=== PATIENT | female | born 1955 | race African-American/Black ===

== ENCOUNTER 2018-12-10 13:08 | Emergency (ER) | payer OTHER, MEDICARE, MEDICAID ==
[~2018-12-10] VITALS: Ht 160 cm; Wt 70.0 kg
[2018-12-10] MEDS ORDERED: METHYLPREDNISOLONE SOD SUCC 125 MG/2 ML VIAL IV STA (13:38)
[2018-12-10] MEDS ORDERED: IPRATROPIUM BROMIDE (0.02%) 0.5MG/2.5ML NEB HHN STA (13:38)
[2018-12-10] MEDS ORDERED: ALBUTEROL (0.083%) 2.5MG/3ML NEB HHN STA (13:38)
[2018-12-10] MEDS ORDERED: SODIUM CHLORIDE 0.9% 1,000 ML IV ONE (16:22)
[2018-12-10 16:36] LABS: BASOPHILS % 0.2 % (0.0-2.0); EOSINOPHILS % 3.3 % (0.0-5.0); HEMATOCRIT. 40.2 % (36.0-48.0); HEMOGLOBIN. 13.1 g/dL (12.0-16.0); LYMPHOCYTES % 21.6 % (20.0-50.0); MEAN CORPUSCULAR VOLUME 92.4 fL (81.0-99.0); MEAN PLATELET VOLUME 7.6 fl (7.4-10.4); MONOCYTES % 8.1 % (2.0-8.0); NEUTROPHILS % 66.8 % (40.0-76.0); PLATELET 292 x1000/uL (130-400); RED BLOOD CELL COUNT 4.35 mill/uL (4.2-5.4); RED CELL DISTRIBUTION WIDTH 14.6 % (11.6-14.6)
[2018-12-10 16:37] LABS: CHLORIDE 107 mEq/L (98-107)
[2018-12-10] MEDS ORDERED: POTASSIUM CHLORIDE 20MEQ TABLET SR PO ONE (17:00)
[2018-12-10 18:08] VITALS: BP 125/83
== END 2018-12-10 18:44 | disposition home or self-care (01) ==
LOC: ER 13:08 → EDBEDREQ 16:30 → ER 18:44 → CANBEDREQ 20:34
DX: J45.901 Unspecified asthma with (acute) exacerbation (principal); R03.0 Elevated blood-pressure reading, without diagnosis of hypertension
CPT/HCPCS: 36415; 71045; 80053; 84484; 85025; 93005; 94644; 96374; 99285; J2930; J7030; J7611

== ENCOUNTER 2020-03-03 11:27 | Inpatient (IN) | payer MEDICAID, MEDICARE, OTHER ==
[~2020-03-03] VITALS: Ht 157.5 cm; Wt 71.7 kg
[~2020-03-03 11:27] MED LIST: VANCOMYCIN 1 G PREMIX 200 ML IV SCH
[2020-03-03] MEDS ORDERED: SODIUM CHLORIDE 0.9% 1000ML BAG (SEPSIS BOLUS) IV ONE (12:15)
[2020-03-03] MEDS ORDERED: CEFAZOLIN 1000MG PREMIX 50 ML IV ONE (12:15)
[2020-03-03] MEDS ORDERED: TETANUS, DIPHTHERIA, PERTUSSIS VAC/PF 0.5ML (>7YR OLD) IM ONE (12:15)
[2020-03-03] MEDS ORDERED: PERMETHRIN 5% CREAM 60GM TOP ONE (12:45)
[2020-03-03 13:45] LABS: BASOPHILS % 0.4 % (0.0-2.0); EOSINOPHILS % 0.4 % (0.0-5.0); HEMATOCRIT. 31.4 % (36.0-48.0); HEMOGLOBIN. 10.2 g/dL (12.0-16.0); LYMPHOCYTES % 9.6 % (20.0-50.0); MEAN CORPUSCULAR HEMOGLOBIN 29.3 pg (28.0-32.0); MEAN CORPUSCULAR VOLUME 90.7 fL (81.0-99.0); MEAN PLATELET VOLUME 7.4 fl (7.4-10.4); MONOCYTES % 6.3 % (2.0-8.0); NEUTROPHILS % 83.3 % (40.0-76.0); PLATELET 305 x1000/uL (130-400); RED BLOOD CELL COUNT 3.46 mill/uL (4.2-5.4); RED CELL DISTRIBUTION WIDTH 15.7 % (11.6-14.6)
[2020-03-03 13:54] LABS: CHLORIDE 111 mEq/L (98-107)
[2020-03-03 14:00] LABS: ETHANOL BLOOD < 10 mg/dL
[2020-03-03 14:03] LABS: CREATINE KINASE 83 IU/L (26-192)
[2020-03-03 14:13] LABS: CLARITY URINE CLOUDY (CLEAR); COLOR URINE DARK YELLOW (YELLOW); KETONES URINE TRACE (NEGATIVE); LEUKOCYTE ESTERASE URINE 2+ (NEGATIVE); NITRITE URINE POSITIVE (NEGATIVE); OCCULT BLOOD URINE TRACE (NEGATIVE); PH URINE 5.5 (4.5-8.0); PROTEIN URINE 1+ (NEGATIVE); SPECIFIC GRAVITY URINE 1.028 (1.005-1.030)
[2020-03-03] MEDS ORDERED: ACETAMINOPHEN 325MG TABLET PO PRN ×2 (14:15)
[2020-03-03] MEDS ORDERED: NA PHOS,M-B/NA PHOS,DI-BA ENEMA 118ML PR PRN (14:15)
[2020-03-03] MEDS ORDERED: CLONIDINE 0.1MG TABLET PO PRN (14:15)
[2020-03-03] MEDS ORDERED: NITROGLYCERIN 0.4MG TABLET SL SL PRN (14:15)
[2020-03-03] MEDS ORDERED: KETOROLAC 15MG/ML VIAL IV PRN (14:15)
[2020-03-03] MEDS ORDERED: MAGNESIUM/ALUMINUM HYDROXIDE/SIMETHICONE 30ML UDC PO PRN (14:15)
[2020-03-03] MEDS ORDERED: IPRATROPIUM/ALBUTEROL 0.5-3(2.5)MG/3ML NEB NEB PRN (14:15)
[2020-03-03] MEDS ORDERED: GUAIFENESIN 200MG/10ML SUGAR FREE UDC PO PRN (14:15)
[2020-03-03] MEDS ORDERED: TRAMADOL 50MG TABLET PO PRN (14:15)
[2020-03-03] MEDS ORDERED: ONDANSETRON HCL 4MG/2ML INJ IV PRN (14:15)
[2020-03-03] MEDS ORDERED: DOCUSATE SODIUM 100MG CAPSULE PO PRN (14:15)
[2020-03-03 14:38] LABS: *BENZODIAZEPINES SCREEN URINE NEGATIVE (NEGATIVE); *COCAINE SCREEN URINE NEGATIVE (NEGATIVE); CANNABINOID URINE SCREEN NEGATIVE (NEGATIVE); METHADONE URINE SCREEN NEGATIVE (NEGATIVE); OPIATES URINE SCREEN NEGATIVE (NEGATIVE); PHENCYCLIDINE URINE SCREEN NEGATIVE (NEGATIVE)
[2020-03-03 14:39] LABS: *AMPHETAMINES SCREEN URINE NEGATIVE (NEGATIVE); *BARBITURATES SCREEN URINE NEGATIVE (NEGATIVE)
[2020-03-03] MEDS ORDERED: PIPERACILLIN/TAZOBACTAM 3.375 G in DEXT 5% WATER 100 ML IV SCH (16:00)
[2020-03-03 16:42] LABS: D-DIMER 10.56 mg/L FEU (<0.50); INR 1.1; PROTHROMBIN TIME 11.4 sec (9.6-11.0)
[2020-03-03 17:00] VITALS: BP 116/77
[2020-03-03] MEDS ORDERED: VANCOMYCIN 1500MG in DEXTROSE 5% WATER 250ML IV NR (17:00)
[2020-03-03] MEDS: SODIUM CHLORIDE 0.9% 1,000 ML IV SCH (18:20)
[2020-03-03] MEDS: PIPERACILLIN/TAZOBACTAM 3.375 G in DEXT 5% WATER 100 ML IV SCH (18:20)
[2020-03-03] MEDS: DILTIAZEM HCL 60MG TABLET PO SCH (18:21)
[2020-03-03] MEDS: ENOXAPARIN 40MG/0.4ML SYR SUBCUT SCH (18:21)
[2020-03-03 20:00] VITALS: BP 119/73
[2020-03-03] MEDS: FAMOTIDINE 20MG TABLET PO SCH (20:55)
[2020-03-03] MEDS: ASCORBIC ACID 500 MG TABLET PO SCH (20:56)
[2020-03-03] MEDS ORDERED: ZOLPIDEM TARTRATE 5MG TABLET PO PRN (21:00)
[2020-03-03 23:29] LABS: CREATINE KINASE 373 IU/L (26-192)
[2020-03-03 23:31] LABS: CREATINE KINASE MB FRACTION 1.7 ng/mL (0.5-3.6)
[2020-03-04] VITALS: BP 118/73
[2020-03-04] MEDS: SODIUM CHLORIDE 0.9% 1,000 ML IV SCH ×2 (00:51→10:01)
[2020-03-04] MEDS: DILTIAZEM HCL 60MG TABLET PO SCH ×4 (00:51→18:00)
[2020-03-04] MEDS: PIPERACILLIN/TAZOBACTAM 3.375 G in DEXT 5% WATER 100 ML IV SCH ×3 (00:54→17:11)
[2020-03-04 04:00] VITALS: BP 111/79
[2020-03-04 08:00] VITALS: BP 103/67
[2020-03-04] MEDS: ASCORBIC ACID 500 MG TABLET PO SCH ×2 (09:55→22:06)
[2020-03-04] MEDS: FAMOTIDINE 20MG TABLET PO SCH ×2 (09:55→22:06)
[2020-03-04] MEDS: ZINC SULFATE 220 MG ( 50 ) CAPSULE PO SCH (09:55)
[2020-03-04] MEDS: ASPIRIN 325MG EC TABLET PO SCH (09:55)
[2020-03-04] MEDS: ENOXAPARIN 40MG/0.4ML SYR SUBCUT SCH (09:55)
[2020-03-04 10:58] LABS: BASOPHILS % 0.3 % (0.0-2.0); EOSINOPHILS % 4.1 % (0.0-5.0); HEMATOCRIT. 25.9 % (36.0-48.0); HEMOGLOBIN. 8.3 g/dL (12.0-16.0); LYMPHOCYTES % 18.7 % (20.0-50.0); MEAN CORPUSCULAR VOLUME 90.5 fL (81.0-99.0); MEAN PLATELET VOLUME 7.3 fl (7.4-10.4); MONOCYTES % 6.8 % (2.0-8.0); NEUTROPHILS % 70.1 % (40.0-76.0); PLATELET 263 x1000/uL (130-400); RED BLOOD CELL COUNT 2.86 mill/uL (4.2-5.4); RED CELL DISTRIBUTION WIDTH 15.3 % (11.6-14.6)
[2020-03-04 11:05] LABS: CHLORIDE 111 mEq/L (98-107)
[2020-03-04 11:12] LABS: LDL CHOLESTEROL 83 mg/dL (5-100); PHOSPHORUS 2.2 mg/dL (2.5-4.9)
[2020-03-04 11:13] LABS: HDL CHOLESTEROL 34 mg/dL (40-59)
[2020-03-04 11:14] LABS: CREATINE KINASE 629 IU/L (26-192)
[2020-03-04] MEDS: VANCOMYCIN 1 G PREMIX 200 ML IV SCH (11:35)
[2020-03-04 12:00] VITALS: BP 102/63
[2020-03-04] MEDS ORDERED: POTASSIUM PHOS,M-BASIC-D-BASIC 20 MMOL in DEXT 5% WATER 243.3333 ML IV SCH (15:00)
[2020-03-04 16:00] VITALS: BP 99/60
[2020-03-04 20:00] VITALS: BP 107/64
[2020-03-05] VITALS: BP 111/84
[2020-03-05] MEDS: PIPERACILLIN/TAZOBACTAM 3.375 G in DEXT 5% WATER 100 ML IV SCH ×3 (00:57→16:46)
[2020-03-05 04:00] VITALS: BP 107/79
[2020-03-05] MEDS: VANCOMYCIN 1 G PREMIX 200 ML IV SCH ×2 (05:13→22:50)
[2020-03-05] MEDS: DILTIAZEM HCL 60MG TABLET PO SCH ×4 (05:56→17:52)
[2020-03-05 06:19] LABS: CHLORIDE 110 mEq/L (98-107)
[2020-03-05 06:34] LABS: PHOSPHORUS 3.6 mg/dL (2.5-4.9)
[2020-03-05 06:42] LABS: BASOPHILS % 0.3 % (0.0-2.0); EOSINOPHILS % 5.5 % (0.0-5.0); HEMATOCRIT. 23.8 % (36.0-48.0); LYMPHOCYTES % 26.5 % (20.0-50.0); MEAN CORPUSCULAR HEMOGLOBIN 30.2 pg (28.0-32.0); MEAN CORPUSCULAR VOLUME 90.3 fL (81.0-99.0); MEAN PLATELET VOLUME 7.3 fl (7.4-10.4); MONOCYTES % 10.1 % (2.0-8.0); NEUTROPHILS % 57.6 % (40.0-76.0); PLATELET 259 x1000/uL (130-400); RED BLOOD CELL COUNT 2.64 mill/uL (4.2-5.4); RED CELL DISTRIBUTION WIDTH 15.3 % (11.6-14.6)
[2020-03-05 08:00] VITALS: BP 112/73
[2020-03-05] MEDS: THIAMINE HCL 100MG TABLET PO SCH (09:05)
[2020-03-05] MEDS: ASPIRIN 325MG EC TABLET PO SCH (09:06)
[2020-03-05] MEDS: ENOXAPARIN 40MG/0.4ML SYR SUBCUT SCH (09:06)
[2020-03-05] MEDS: ZINC SULFATE 220 MG ( 50 ) CAPSULE PO SCH (09:06)
[2020-03-05] MEDS: FAMOTIDINE 20MG TABLET PO SCH ×2 (09:06→21:01)
[2020-03-05] MEDS: MULTIVITAMINS,THER W-MINERALS TABLET PO SCH (09:06)
[2020-03-05] MEDS: ASCORBIC ACID 500 MG TABLET PO SCH ×2 (09:06→21:00)
[2020-03-05] MEDS: CLOPIDOGREL 75MG TABLET PO SCH (10:45)
[2020-03-05 12:00] VITALS: BP 135/93
[2020-03-05 16:00] VITALS: BP 107/71
[2020-03-05 20:00] VITALS: BP 120/73
[2020-03-06] VITALS: BP 112/59
[2020-03-06] MEDS: DILTIAZEM HCL 60MG TABLET PO SCH ×4 (00:22→17:13)
[2020-03-06] MEDS: PIPERACILLIN/TAZOBACTAM 3.375 G in DEXT 5% WATER 100 ML IV SCH ×3 (01:32→17:12)
[2020-03-06 04:00] VITALS: BP 107/60
[2020-03-06] MEDS: SODIUM CHLORIDE 0.9% 1,000 ML IV SCH ×4 (06:02→17:17)
[2020-03-06 08:00] VITALS: BP 143/91
[2020-03-06] MEDS: FAMOTIDINE 20MG TABLET PO SCH (10:38)
[2020-03-06] MEDS: THIAMINE HCL 100MG TABLET PO SCH (10:39)
[2020-03-06] MEDS: CLOPIDOGREL 75MG TABLET PO SCH (10:39)
[2020-03-06] MEDS: MULTIVITAMINS,THER W-MINERALS TABLET PO SCH (10:39)
[2020-03-06] MEDS: ZINC SULFATE 220 MG ( 50 ) CAPSULE PO SCH (10:39)
[2020-03-06] MEDS: ASCORBIC ACID 500 MG TABLET PO SCH (10:39)
[2020-03-06] MEDS: ENOXAPARIN 40MG/0.4ML SYR SUBCUT SCH (10:48)
[2020-03-06] MEDS ORDERED: VANCOMYCIN 1 G PREMIX 200 ML IV SCH (11:00)
[2020-03-06 11:55] VITALS: BP 101/71
[2020-03-06 14:57] VITALS: BP 101/71
[2020-03-06 16:00] VITALS: BP 115/65
[2020-03-06] MEDS ORDERED: ATORVASTATIN CALCIUM 10MG TABLET PO SCH (21:00)
== END 2020-03-06 18:11 | DRG 871 ==
LOC: ER 11:27 → EDBEDREQTM 13:47 → EDBEDREQ 13:47 → 5WST 13:52 → EDBEDREQTM 13:56 → EDBEDREQ 13:56 → SUPCPDRO 14:07 → ENRESERV 14:21
PROVIDERS: ADMIT Internal Medicine; ATTEND Internal Medicine
DX: A41.9 Sepsis, unspecified organism (principal); G92 Toxic encephalopathy; I63.9 Cerebral infarction, unspecified; E44.1 Mild protein-calorie malnutrition; L03.90 Cellulitis, unspecified; N39.0 Urinary tract infection, site not specified; B95.8 Unspecified staphylococcus as the cause of diseases classified elsewhere; D63.8 Anemia in other chronic diseases classified elsewhere; E86.1 Hypovolemia; F03.90 Unspecified dementia, unspecified severity, without behavioral disturbance, psychotic disturbance, mood disturbance, and anxiety; I10 Essential (primary) hypertension; L89.309 Pressure ulcer of unspecified buttock, unspecified stage; R62.7 Adult failure to thrive; R65.20 Severe sepsis without septic shock; Z86.73 Personal history of transient ischemic attack (TIA), and cerebral infarction without residual deficits; Z68.28 Body mass index [BMI] 28.0-28.9, adult; Z79.1 Long term (current) use of non-steroidal anti-inflammatories (NSAID); Z79.899 Other long term (current) drug therapy; Z59.0 Homelessness; Z03.818 Encounter for observation for suspected exposure to other biological agents ruled out
CPT/HCPCS: 36415; 70551; 71045; 80053; 80061; 80202; 80305; 80307; 80320; 80329; 81003; 82140; 82550; 82553; 83036; 83605; 83615; 83735; 83880; 84100; 84145; 84443; 84484; 85025; 85379; 85384; 87077; 87186; 90715; 93005; 93306; 93880; 93970; 97162; 97166; 97530; 99285; J0690; J1650; J2543; J3370; J3490; J7030; J7060; G0480; U0003-CS

== ENCOUNTER 2021-01-17 13:45 | Inpatient (IN) | payer MEDICARE, MEDICAID ==
[~2021-01-17] VITALS: Ht 157.5 cm; Wt 71.7 kg
[2021-01-17 12:35] VITALS: BP 110/72
[2021-01-17 15:21] VITALS: BP 110/72
[2021-01-17] MEDS ORDERED: LIP40 MT (15:41)
[2021-01-17] MEDS ORDERED: FERR325T6 MT (15:41)
[2021-01-17] MEDS ORDERED: FAMO-135 PO (15:41)
[2021-01-17] MEDS ORDERED: DILT60TA41 MT (15:41)
[2021-01-17 16:00] VITALS: BP 116/79
[2021-01-17] MEDS ORDERED: ACETAMINOPHEN 325MG TABLET PO PRN (16:00)
[2021-01-17] MEDS ORDERED: HYDROCODONE/ACETAMINOPHEN 5/325MG TABLET PO PRN (16:00)
[2021-01-17] MEDS: SODIUM CHLORIDE 0.45% 1,000 ML IV SCH (16:00)
[2021-01-17] MEDS ORDERED: CLONIDINE 0.1MG TABLET PO PRN (16:00)
[2021-01-17] MEDS ORDERED: CEFTRIAXONE 1 G PREMIX 50 ML IV SCH (16:00)
[2021-01-17] MEDS ORDERED: ONDANSETRON HCL 4MG/2ML INJ IV PRN (16:00)
[2021-01-17] MEDS ORDERED: THIA50TA12 MT (16:34)
[2021-01-17] MEDS ORDERED: ASCO500C15 PO (16:34)
[2021-01-17] MEDS ORDERED: NITR0.4T49 SL (16:34)
[2021-01-17] MEDS ORDERED: MULT-1146 MT (16:34)
[2021-01-17] MEDS ORDERED: CLOP-31 MT (16:34)
[2021-01-17] MEDS: CEFTRIAXONE 1,000 MG in DEXTROSE 5% WATER 50 ML IV SCH (17:23)
[2021-01-17] MEDS ORDERED: ENOXAPARIN 40MG/0.4ML SYR SUBCUT NR (18:00)
[2021-01-17 20:00] VITALS: BP 97/73
[2021-01-18] VITALS: BP 116/77
[2021-01-18 04:00] VITALS: BP 116/73
[2021-01-18] MEDS: SODIUM CHLORIDE 0.45% 1,000 ML IV SCH ×2 (05:20→18:40)
[2021-01-18 07:54] LABS: BASOPHILS % 0.3 % (0.0-2.0); EOSINOPHILS % 2.1 % (0.0-5.0); HEMATOCRIT. 37.5 % (36.0-48.0); LYMPHOCYTES % 39.6 % (20.0-50.0); MEAN CORPUSCULAR HEMOGLOBIN 32.1 pg (28.0-32.0); MEAN CORPUSCULAR VOLUME 92.6 fL (81.0-99.0); MEAN PLATELET VOLUME 7.3 fl (7.4-10.4); MONOCYTES % 9.9 % (2.0-8.0); NEUTROPHILS % 48.1 % (40.0-76.0); PLATELET 226 x1000/uL (130-400); RED BLOOD CELL COUNT 4.05 mill/uL (4.2-5.4); RED CELL DISTRIBUTION WIDTH 14.2 % (11.6-14.6)
[2021-01-18 08:00] VITALS: BP 106/78
[2021-01-18 08:18] LABS: CHLORIDE 109 mEq/L (98-107)
[2021-01-18 08:29] LABS: HDL CHOLESTEROL 61 mg/dL (40-59); LDL CHOLESTEROL 66 mg/dL (5-100)
[2021-01-18 12:00] VITALS: BP 124/70
[2021-01-18 16:00] VITALS: BP 133/90
[2021-01-18] MEDS: CEFTRIAXONE 1,000 MG in DEXTROSE 5% WATER 50 ML IV SCH (16:28)
[2021-01-18] MEDS: DILTIAZEM HCL 60MG TABLET PO SCH (16:29)
[2021-01-18] MEDS: ASCORBIC ACID 500 MG TABLET PO SCH (16:29)
[2021-01-18] MEDS: CLOPIDOGREL 75MG TABLET PO SCH (16:29)
[2021-01-18] MEDS: ENOXAPARIN 40MG/0.4ML SYR SUBCUT SCH (16:29)
[2021-01-18] MEDS: FAMOTIDINE 20MG TABLET PO SCH (16:29)
[2021-01-18 20:00] VITALS: BP 111/66
[2021-01-18] MEDS: ATORVASTATIN CALCIUM 40MG TABLET PO SCH (21:46)
[2021-01-19] VITALS: BP 110/72
[2021-01-19 04:00] VITALS: BP 112/75
[2021-01-19 08:00] VITALS: BP 116/84
[2021-01-19] MEDS: ASCORBIC ACID 500 MG TABLET PO SCH (09:57)
[2021-01-19] MEDS: FAMOTIDINE 20MG TABLET PO SCH (10:02)
[2021-01-19] MEDS: DILTIAZEM HCL 60MG TABLET PO SCH ×2 (10:02→18:21)
[2021-01-19] MEDS: ENOXAPARIN 40MG/0.4ML SYR SUBCUT SCH ×2 (10:03→18:16)
[2021-01-19] MEDS: CLOPIDOGREL 75MG TABLET PO SCH (10:03)
[2021-01-19 11:27] LABS: CHLORIDE 108 mEq/L (98-107)
[2021-01-19 11:35] LABS: BASOPHILS % 0.1 % (0.0-2.0); EOSINOPHILS % 0.3 % (0.0-5.0); HEMATOCRIT. 40.5 % (36.0-48.0); HEMOGLOBIN. 13.4 g/dL (12.0-16.0); LYMPHOCYTES % 28.5 % (20.0-50.0); MEAN CORPUSCULAR VOLUME 93.5 fL (81.0-99.0); MEAN PLATELET VOLUME 7.2 fl (7.4-10.4); MONOCYTES % 9.6 % (2.0-8.0); NEUTROPHILS % 61.5 % (40.0-76.0); PLATELET 252 x1000/uL (130-400); RED BLOOD CELL COUNT 4.33 mill/uL (4.2-5.4); RED CELL DISTRIBUTION WIDTH 14.2 % (11.6-14.6)
[2021-01-19 12:00] VITALS: BP 118/74
[2021-01-19 16:00] VITALS: BP 114/76
[2021-01-19] MEDS: CEFTRIAXONE 1,000 MG in DEXTROSE 5% WATER 50 ML IV SCH (18:00)
[2021-01-19 20:00] VITALS: BP 123/78
[2021-01-19] MEDS: SODIUM CHLORIDE 0.45% 1,000 ML IV SCH (21:20)
[2021-01-19] MEDS: ATORVASTATIN CALCIUM 40MG TABLET PO SCH (22:18)
[2021-01-20] VITALS: BP 105/72
[2021-01-20 04:00] VITALS: BP 120/75
[2021-01-20 08:00] VITALS: BP 115/77
[2021-01-20] MEDS: CLOPIDOGREL 75MG TABLET PO SCH (08:22)
[2021-01-20] MEDS: DILTIAZEM HCL 60MG TABLET PO SCH (08:22)
[2021-01-20] MEDS: FAMOTIDINE 20MG TABLET PO SCH (08:22)
[2021-01-20] MEDS: ASCORBIC ACID 500 MG TABLET PO SCH (08:22)
[2021-01-20] MEDS: SODIUM CHLORIDE 0.45% 1,000 ML IV SCH (10:40)
[2021-01-20 12:00] VITALS: BP 93/63
[2021-01-20 12:51] VITALS: BP 115/77
[2021-01-20 16:00] VITALS: BP 112/65
== END 2021-01-20 17:10 | DRG 872 ==
LOC: 6EST 13:45
PROVIDERS: ADMIT Hospitalist; ATTEND Hospitalist
DX: A41.9 Sepsis, unspecified organism (principal); E44.1 Mild protein-calorie malnutrition; N39.0 Urinary tract infection, site not specified; F03.90 Unspecified dementia, unspecified severity, without behavioral disturbance, psychotic disturbance, mood disturbance, and anxiety; I10 Essential (primary) hypertension; I25.10 Atherosclerotic heart disease of native coronary artery without angina pectoris; K21.9 Gastro-esophageal reflux disease without esophagitis; Z86.73 Personal history of transient ischemic attack (TIA), and cerebral infarction without residual deficits; Z87.440 Personal history of urinary (tract) infections; Z68.28 Body mass index [BMI] 28.0-28.9, adult; D64.9 Anemia, unspecified
CPT/HCPCS: 36415; 80053; 80061; 85025; C1893; J0696; J1650; J7060

== ENCOUNTER 2022-04-09 15:03 | Inpatient (IN) | payer MEDICARE, MEDICAID ==
[~2022-04-09] VITALS: Ht 152.4 cm; Wt 69.9 kg
[~2022-04-09 15:03] MED LIST changes: +ASCO500C15 PO; +CLOP-31 MT; +DILT60TA41 MT; +FAMO-135 PO; +FERR325T6 MT; +LIP40 MT; +MULT-1146 MT; +NITR0.4T49 SL; +THIA50TA12 MT; -VANCOMYCIN 1 G PREMIX 200 ML IV SCH
[2022-04-09] MEDS ORDERED: ALBUTEROL (0.083%) 2.5MG/3ML NEB HHN ONE (15:45)
[2022-04-09] MEDS ORDERED: SODIUM CHLORIDE 0.9% 500 ML IV ONE (15:45)
[2022-04-09] MEDS ORDERED: IPRATROPIUM BROMIDE (0.02%) 0.5MG/2.5ML NEB HHN ONE (15:45)
[2022-04-09] MEDS ORDERED: PIPERACILLIN/TAZ 3.375G PREMIX 50 ML IV ONE (15:45)
[2022-04-09 15:58] LABS: BASOPHILS % 0.3 % (0.0-2.0); HEMATOCRIT. 43.6 % (36.0-48.0); HEMOGLOBIN. 14.4 g/dL (12.0-16.0); MEAN CORPUSCULAR HEMOGLOBIN 31.4 pg (28.0-32.0); MEAN PLATELET VOLUME 8.3 fl (7.4-10.4); MONOCYTES % 7.9 % (2.0-8.0); NEUTROPHILS % 80.8 % (40.0-76.0); PLATELET 241 x1000/uL (130-400); RED BLOOD CELL COUNT 4.59 mill/uL (4.2-5.4); RED CELL DISTRIBUTION WIDTH 14.7 % (11.6-14.6)
[2022-04-09 16:11] LABS: CHLORIDE 114 mEq/L (98-107)
[2022-04-09 16:20] LABS: BG BASE EXCESS -1.1 mmol/L (-2.0-2.0); BG CARBOXYHEMOGLOBIN 0.4 % (0.5-1.5); BG DEOXYHEMOGLOBIN 7.8 % (0.0-5.0); BG FRACTION INSPIRED OXYGEN 44; BG HCO3 ACT 19.5 mmol/L (22.0-26.0); BG METHEMOGLOBIN 0.2 % (0.0-1.5); BG OXYGEN SATURATION 92.2 % (92.0-98.5); BG OXYHEMOGLOBIN 91.6 % (94.0-97.0); BG PCO2 23.7 mmHg (35.0-45.0); BG PH 7.533 (7.350-7.450); BG PO2 63.1 mmHg (75.0-100.0); BG SAMPLE SITE LEFT RADIAL; BG TOTAL HEMOGLOBIN 15.1 g/dL (12.0-18.0); BG VENT MODE NASAL CANNULA
[2022-04-09 17:18] LABS: CLARITY URINE CLOUDY (CLEAR); COLOR URINE DARK YELLOW (YELLOW); KETONES URINE 1+ (NEGATIVE); LEUKOCYTE ESTERASE URINE 2+ (NEGATIVE); NITRITE URINE POSITIVE (NEGATIVE); OCCULT BLOOD URINE 2+ (NEGATIVE); PROTEIN URINE 4+ (NEGATIVE); SPECIFIC GRAVITY URINE 1.039 (1.005-1.030)
[2022-04-09] MEDS ORDERED: MIDAZOLAM HCL 2 MG/2 ML VIAL IV ONE ×2 (17:30→17:45)
[2022-04-09] MEDS ORDERED: ALTEPLASE 100MG/VIAL IV ONE (18:15)
[2022-04-09] MEDS ORDERED: IOHEXOL-350 100 ML BOTTLE ONE (18:18)
[2022-04-09] MEDS ORDERED: ALTEPLASE IV NR (18:30)
[2022-04-09] MEDS ORDERED: SODIUM CHLORIDE 0.9% 1000ML BAG (SEPSIS BOLUS) IV ONE (19:00)
[2022-04-09] MEDS ORDERED: DOCUSATE SODIUM 100MG CAPSULE PO PRN (19:00)
[2022-04-09] MEDS ORDERED: IPRATROPIUM/ALBUTEROL 0.5-3(2.5)MG/3ML NEB NEB PRN (19:00)
[2022-04-09] MEDS ORDERED: ONDANSETRON HCL 4MG/2ML INJ IV PRN (19:00)
[2022-04-09] MEDS ORDERED: MAGNESIUM/ALUMINUM HYDROXIDE/SIMETHICONE 30ML UDC PO PRN (19:00)
[2022-04-09] MEDS ORDERED: GUAIFENESIN 200MG/10ML SUGAR FREE UDC PO PRN (19:00)
[2022-04-09] MEDS ORDERED: NOREPINEPHRINE 8 MG in DEXT 5% WATER 242 ML IV PRN (19:00)
[2022-04-09] MEDS ORDERED: CLONIDINE 0.1MG TABLET PO PRN (19:00)
[2022-04-09] MEDS ORDERED: ACETAMINOPHEN 325MG TABLET PO PRN ×2 (19:00)
[2022-04-09] MEDS ORDERED: SODIUM CHLORIDE 0.9% 1,950 ML IV SCH (19:15)
[2022-04-09] MEDS: MEROPENEM 1,000 MG in SODIUM CHLORIDE 0.9% 100 ML IV SCH (19:34)
[2022-04-09] MEDS ORDERED: VANCOMYCIN 1.25GM PMX (XELLIA) 250 ML IV SCH (20:00)
[2022-04-09] MEDS: ASCORBIC ACID 500 MG TABLET PO SCH (21:00)
[2022-04-09] MEDS: PANTOPRAZOLE SODIUM 40 MG/VIAL IV SCH (21:00)
[2022-04-09] MEDS ORDERED: ZOLPIDEM TARTRATE 5MG TABLET PO PRN (21:00)
[2022-04-10] VITALS (42 sets, daily range): BP systolic 67–231; BP diastolic 39–187
[2022-04-10 00:10] LABS: CREATINE KINASE MB FRACTION 1.8 ng/mL (0.5-3.6)
[2022-04-10] MEDS: MEROPENEM 1,000 MG in SODIUM CHLORIDE 0.9% 100 ML IV SCH ×3 (03:51→20:52)
[2022-04-10 05:52] LABS: BASOPHILS % 0.2 % (0.0-2.0); EOSINOPHILS % 0.6 % (0.0-5.0); HEMATOCRIT. 38.8 % (36.0-48.0); HEMOGLOBIN. 12.7 g/dL (12.0-16.0); LYMPHOCYTES % 16.1 % (20.0-50.0); MEAN CORPUSCULAR HEMOGLOBIN 31.3 pg (28.0-32.0); MEAN CORPUSCULAR VOLUME 95.9 fL (81.0-99.0); MEAN PLATELET VOLUME 8.1 fl (7.4-10.4); MONOCYTES % 10.4 % (2.0-8.0); NEUTROPHILS % 72.7 % (40.0-76.0); PLATELET 199 x1000/uL (130-400); RED BLOOD CELL COUNT 4.05 mill/uL (4.2-5.4)
[2022-04-10 06:25] LABS: PHOSPHORUS 3.1 mg/dL (2.5-4.9)
[2022-04-10 08:16] LABS: CHLORIDE 116 mEq/L (98-107)
[2022-04-10 08:26] LABS: CREATINE KINASE 325 IU/L (26-192); CREATINE KINASE MB FRACTION 2.2 ng/mL (0.5-3.6)
[2022-04-10] MEDS: CHOLECALCIFEROL (D3) 1000 UNIT TABLET PO SCH (09:00)
[2022-04-10] MEDS: ASCORBIC ACID 500 MG TABLET PO SCH ×2 (09:00→20:52)
[2022-04-10] MEDS: ZINC SULFATE 220 MG ( 50 ) CAPSULE PO SCH (09:00)
[2022-04-10] MEDS: ENOXAPARIN 80MG/0.8ML SYR SUBCUT SCH ×2 (11:00→22:54)
[2022-04-10] MEDS ORDERED: IPRATROPIUM BROMIDE (0.02%) 0.5MG/2.5ML NEB HHN PRN (12:00)
[2022-04-10] MEDS: VANCOMYCIN 750MG PREMIX 150 ML IV SCH (12:11)
[2022-04-10] MEDS: PANTOPRAZOLE SODIUM 40 MG/VIAL IV SCH (20:52)
[2022-04-11] VITALS (25 sets, daily range): BP systolic 103–156; BP diastolic 47–116
[2022-04-11] MEDS: MEROPENEM 1,000 MG in SODIUM CHLORIDE 0.9% 100 ML IV SCH ×3 (04:39→17:03)
[2022-04-11 06:03] LABS: INR 1.2; PROTHROMBIN TIME 12.4 sec (9.6-11.0)
[2022-04-11] MEDS: VANCOMYCIN 750MG PREMIX 150 ML IV SCH (06:32)
[2022-04-11] MEDS: CHOLECALCIFEROL (D3) 1000 UNIT TABLET PO SCH (09:00)
[2022-04-11] MEDS: ASCORBIC ACID 500 MG TABLET PO SCH (09:00)
[2022-04-11] MEDS: ZINC SULFATE 220 MG ( 50 ) CAPSULE PO SCH (09:00)
[2022-04-11] MEDS: ENOXAPARIN 80MG/0.8ML SYR SUBCUT SCH (11:51)
[2022-04-12] VITALS (12 sets, daily range): BP systolic 100–146; BP diastolic 62–95
[2022-04-12] MEDS: ASCORBIC ACID 500 MG TABLET PO SCH ×3 (00:03→21:14)
[2022-04-12] MEDS: PANTOPRAZOLE SODIUM 40 MG/VIAL IV SCH (00:03)
[2022-04-12] MEDS: VANCOMYCIN 750MG PREMIX 150 ML IV SCH (00:04)
[2022-04-12] MEDS: ENOXAPARIN 80MG/0.8ML SYR SUBCUT SCH ×2 (00:04→10:07)
[2022-04-12] MEDS: MEROPENEM 1,000 MG in SODIUM CHLORIDE 0.9% 100 ML IV SCH ×2 (05:44→18:22)
[2022-04-12 06:30] LABS: BASOPHILS % 0.1 % (0.0-2.0); EOSINOPHILS % 0.7 % (0.0-5.0); HEMATOCRIT. 39.2 % (36.0-48.0); HEMOGLOBIN. 12.8 g/dL (12.0-16.0); MEAN CORPUSCULAR HEMOGLOBIN 31.4 pg (28.0-32.0); MEAN PLATELET VOLUME 8.2 fl (7.4-10.4); NEUTROPHILS % 75.2 % (40.0-76.0); PLATELET 264 x1000/uL (130-400); RED BLOOD CELL COUNT 4.09 mill/uL (4.2-5.4)
[2022-04-12 06:54] LABS: CHLORIDE 118 mEq/L (98-107)
[2022-04-12] MEDS: ZINC SULFATE 220 MG ( 50 ) CAPSULE PO SCH (08:49)
[2022-04-12] MEDS: CHOLECALCIFEROL (D3) 1000 UNIT TABLET PO SCH (08:49)
[2022-04-12] MEDS ORDERED: VANCOMYCIN 750MG PMX (XELLIA) 150 ML IV SCH (12:00)
[2022-04-12] MEDS ORDERED: POTASSIUM CHLORIDE INJ 40 MEQ in DEXT 5% WATER 250 ML IV ONE (13:30)
[2022-04-12] MEDS: KCL 20MEQ/100ML X 2 FOR TOTAL KCL 40MEQ/200ML IV SCH ×2 (14:10→16:28)
[2022-04-12] MEDS: FAMOTIDINE 20MG TABLET PO SCH (16:33)
[2022-04-13] VITALS (12 sets, daily range): BP systolic 106–133; BP diastolic 50–94
[2022-04-13] MEDS: ENOXAPARIN 80MG/0.8ML SYR SUBCUT SCH ×2 (00:27→10:38)
[2022-04-13] MEDS: MEROPENEM 1,000 MG in SODIUM CHLORIDE 0.9% 100 ML IV SCH (05:35)
[2022-04-13] MEDS: ASCORBIC ACID 500 MG TABLET PO SCH ×2 (10:37→21:13)
[2022-04-13] MEDS: ZINC SULFATE 220 MG ( 50 ) CAPSULE PO SCH (10:37)
[2022-04-13] MEDS: CHOLECALCIFEROL (D3) 1000 UNIT TABLET PO SCH (10:37)
[2022-04-13] MEDS: FAMOTIDINE 20MG TABLET PO SCH ×2 (10:42→17:26)
[2022-04-13] MEDS ORDERED: CEFTRIAXONE 1,000 MG in DEXTROSE 5% WATER 50 ML IV SCH (18:00)
[2022-04-14] VITALS (9 sets, daily range): BP systolic 109–155; BP diastolic 57–92
[2022-04-14] MEDS: ENOXAPARIN 80MG/0.8ML SYR SUBCUT SCH ×2 (00:28→08:58)
[2022-04-14] MEDS: ASCORBIC ACID 500 MG TABLET PO SCH (08:58)
[2022-04-14] MEDS: FAMOTIDINE 20MG TABLET PO SCH (08:58)
[2022-04-14] MEDS: ZINC SULFATE 220 MG ( 50 ) CAPSULE PO SCH (08:58)
[2022-04-14] MEDS: CHOLECALCIFEROL (D3) 1000 UNIT TABLET PO SCH (08:58)
[2022-04-14] MEDS ORDERED: METOPROLOL TARTRATE 25MG TABLET PO SCH (12:45)
[2022-04-14] MEDS ORDERED: APIXABAN 5 MG TABLET PO SCH (17:00)
== END 2022-04-14 15:18 | DRG 871 ==
LOC: ER 15:03 → EDBEDREQ 16:02 → MICUSO 18:34 → EDBEDREQSVC 18:38 → EDBEDREQ 18:38 → ENRESERV 22:35 → MICUSO 04-10 01:57 → 5EST 04-11 12:32
PROVIDERS: ADMIT Internal Medicine; ATTEND Internal Medicine
DX: A41.51 Sepsis due to Escherichia coli [E. coli] (principal); E43 Unspecified severe protein-calorie malnutrition; I26.92 Saddle embolus of pulmonary artery without acute cor pulmonale; R65.21 Severe sepsis with septic shock; J96.01 Acute respiratory failure with hypoxia; G92.8 Other toxic encephalopathy; N39.0 Urinary tract infection, site not specified; J98.11 Atelectasis; E87.2 Acidosis; I82.401 Acute embolism and thrombosis of unspecified deep veins of right lower extremity; Z20.822 Contact with and (suspected) exposure to COVID-19; I95.9 Hypotension, unspecified; K21.9 Gastro-esophageal reflux disease without esophagitis; E78.5 Hyperlipidemia, unspecified; E78.00 Pure hypercholesterolemia, unspecified; R13.10 Dysphagia, unspecified; R77.8 Other specified abnormalities of plasma proteins; E87.6 Hypokalemia; R74.01 Elevation of levels of liver transaminase levels; F03.90 Unspecified dementia, unspecified severity, without behavioral disturbance, psychotic disturbance, mood disturbance, and anxiety; B96.89 Other specified bacterial agents as the cause of diseases classified elsewhere; Z79.899 Other long term (current) drug therapy; Z68.30 Body mass index [BMI] 30.0-30.9, adult; I69.30 Unspecified sequelae of cerebral infarction; Z79.02 Long term (current) use of antithrombotics/antiplatelets
CPT/HCPCS: 36415; 36600; 71045; 71275; 80048; 80053; 80061; 80202; 81003; 82375; 82550; 82553; 82805; 82962; 83036; 83605; 83735; 83880; 84100; 84145; 84484; 85025; 85379; 87077; 87186; 87426; 92610; 93005; 93306; 93970; 94640; 99291; C9113; J0696; J1650; J2185; J2250; J2543; J2997; J3370; J3480; J7040; J7050; J7060; Q9967

== ENCOUNTER 2023-05-27 12:17 | Inpatient (IN) | payer MEDICARE, MEDICAID ==
[~2023-05-27] VITALS: Ht 162.6 cm; Wt 70.4 kg
[~2023-05-27 12:17] MED LIST changes: +ACET-2708 MT; +APIX5TAB PO; -ASCO500C15 PO; -FAMO-135 PO; +FAMO20TA8 PO; +MEGE400O5 PO; +NITR-87 MT; -NITR0.4T49 SL
[2023-05-27] MEDS ORDERED: SODIUM CHLORIDE 0.9% 1,000 ML IV ONE (12:30)
[2023-05-27] MEDS ORDERED: PIPERACILLIN/TAZ 3.375G PREMIX 50 ML IV ONE (12:30)
[2023-05-27] MEDS ORDERED: VANCOMYCIN 1G PREMIX 200 ML IV ONE (12:30)
[2023-05-27 13:19] LABS: INR 1.2; PROTHROMBIN TIME 12.5 sec (9.6-11.0)
[2023-05-27 13:22] LABS: BASOPHILS % 0.1 % (0.0-2.0); EOSINOPHILS % 0.2 % (0.0-5.0); LYMPHOCYTES % 12.8 % (20.0-50.0); MEAN CORPUSCULAR HEMOGLOBIN 22.5 pg (28.0-32.0); MEAN CORPUSCULAR HGB CONC 23.9 g/dL (31.0-37.0); MEAN CORPUSCULAR VOLUME 94.2 fL (81.0-99.0); MEAN PLATELET VOLUME 9.4 fl (7.4-10.4); MONOCYTES % 6.5 % (2.0-8.0); NEUTROPHILS % 80.4 % (40.0-76.0); PLATELET 563 x1000/uL (130-400); RED BLOOD CELL COUNT 1.67 mill/uL (4.2-5.4); RED CELL DISTRIBUTION WIDTH 24.2 % (11.6-14.6)
[2023-05-27 13:25] LABS: CHLORIDE 143 mEq/L (98-107); INDEX HEMOLYSI 1 (1-3); INDEX ICTERIC 1 (1-4); INDEX LIPEMIC 1 (1-3); POTASSIUM 4.2 mEq/L (3.5-5.1)
[2023-05-27 13:34] LABS: ALANINE AMINOTRANSFERASE 20 IU/L (13-61); ALBUMIN 1.7 g/dL (3.4-5.0); ASPARTATE AMINOTRANSFERASE 36 IU/L (15-37); BILIRUBIN TOTAL 0.2 mg/dL (0.1-1.0); CALCIUM 8.2 mg/dL (8.5-10.1); CARBON DIOXIDE 12 mEq/L (21-32); CREATININE 0.9 mg/dL (0.6-1.3); GLUCOSE 170 mg/dL (70-105); NT PRO B-TYPE NATRIURETIC PEP 700 pg/mL (5-125); PROTEIN TOTAL 6.4 g/dL (6.0-8.3); UREA NITROGEN BLOOD 48 mg/dL (7-21)
[2023-05-27 13:35] LABS: CLARITY URINE CLEAR (CLEAR); COLOR URINE YELLOW (YELLOW); GLUCOSE URINE NEGATIVE (NEGATIVE); KETONES URINE NEGATIVE (NEGATIVE); LEUKOCYTE ESTERASE URINE 3+ (NEGATIVE); NITRITE URINE NEGATIVE (NEGATIVE); OCCULT BLOOD URINE 1+ (NEGATIVE); PROTEIN URINE NEGATIVE (NEGATIVE); SPECIFIC GRAVITY URINE 1.019 (1.005-1.030); UROBILINOGEN URINE 0.2 E.U./dL (0.2-1.0)
[2023-05-27 13:45] LABS: DIFFERENTIAL COMMENT 1
[2023-05-27 13:47] LABS: ADD RBC MORPHOLOGY YES
[2023-05-27 13:48] LABS: HEMATOCRIT. 15.7 % (36.0-48.0); HEMOGLOBIN. 3.8 g/dL (12.0-16.0)
[2023-05-27 13:50] LABS: SODIUM 169 mEq/L (136-145)
[2023-05-27 13:51] LABS: TROPONIN I HIGH SENSITIVITY 97 ng/L (<54)
[2023-05-27 13:53] LABS: LACTIC ACID 10.2 mmol/L (0.4-2.0)
[2023-05-27 14:00] LABS: SQUAMOUS EPITHELIAL CELL URINE RARE /lpf (RARE/1+); WBC URINE 15-25 /hpf (0-2)
[2023-05-27 14:03] LABS: BACTERIA URINE 2+
[2023-05-27 14:16] LABS: PLATELET ESTIMATE INCREASED; ROULEAUX 2+
[2023-05-27 14:17] LABS: ANISOCYTOSIS 2+; HYPOCHROMASIA 1+
[2023-05-27] MEDS ORDERED: MAGNESIUM/ALUMINUM HYDROXIDE/SIMETHICONE 30ML UDC PO PRN (14:30)
[2023-05-27] MEDS ORDERED: DOCUSATE SODIUM 100MG CAPSULE PO PRN (14:30)
[2023-05-27] MEDS ORDERED: CLONIDINE 0.1MG TABLET PO PRN (14:30)
[2023-05-27] MEDS ORDERED: GUAIFENESIN 200MG/10ML SUGAR FREE UDC PO PRN (14:30)
[2023-05-27] MEDS ORDERED: ACETAMINOPHEN 325MG TABLET PO PRN ×2 (14:30)
[2023-05-27] MEDS ORDERED: ONDANSETRON HCL 4MG/2ML INJ IV PRN (14:30)
[2023-05-27] MEDS ORDERED: PANTOPRAZOLE 80 MG in SODIUM CHLORIDE 0.9% 100 ML IV SCH (14:30)
[2023-05-27] MEDS ORDERED: MEROPENEM 1,000 MG in SODIUM CHLORIDE 0.9% 100 ML IV SCH (14:45)
[2023-05-27 14:59] LABS: TROPONIN I HIGH SENSITIVITY 93 ng/L (<54)
[2023-05-27 15:08] LABS: T4 FREE 0.92 ng/dL (0.76-1.46); THYROID STIMULATING HORMONE 0.61 uIU/mL (0.36-3.74)
[2023-05-27] MEDS: DEXT 5%/0.45% NACL 1000ML 1,000 ML IV SCH (15:20)
[2023-05-27 15:25] LABS: VITAMIN B12 SERUM 262 pg/mL (211-911)
[2023-05-27] MEDS: PANTOPRAZOLE 80 MG in SODIUM CHLORIDE 0.9% 100 ML IV SCH (16:44)
[2023-05-27] MEDS ORDERED: CYANOCOBALAMIN 1000MCG/ML VIAL IM NR (17:30)
[2023-05-27 19:50] LABS: INDEX HEMOLYSI 1 (1-3)
[2023-05-27 20:08] LABS: CREATINE KINASE 1668 IU/L (26-192)
[2023-05-27 21:49] VITALS: BP 92/67; PULSE 99; RESP 26; TEMP 98.4
[2023-05-27 22:00] VITALS: BP 104/79; PULSE 97; RESP 27
[2023-05-27 22:14] VITALS: BP 104/79; PULSE 98; RESP 24; TEMP 97.9
[2023-05-27] MEDS: MEROPENEM 1,000 MG in SODIUM CHLORIDE 0.9% 100 ML IV SCH (22:39)
[2023-05-27 22:58] VITALS: BP 103/76; PULSE 100; RESP 20; TEMP 97.8
[2023-05-27 23:14] VITALS: BP 107/97; PULSE 94; RESP 21; TEMP 98
[2023-05-28] VITALS (15 sets, daily range): BP systolic 97–108; BP diastolic 67–77; PULSE 88–106; RESP 16–26; TEMP 97.1–98.6; O2SAT 97–100
[2023-05-28] MEDS: DEXT 5%/0.45% NACL 1000ML 1,000 ML IV SCH (00:20)
[2023-05-28] MEDS: PANTOPRAZOLE 80 MG in SODIUM CHLORIDE 0.9% 100 ML IV SCH (01:16)
[2023-05-28 02:58] LABS: HEMATOCRIT 26.4 % (36.0-48.0)
[2023-05-28 03:44] LABS: CREATINE KINASE MB FRACTION 3.2 ng/mL (0.5-3.6)
[2023-05-28] MEDS: IPRATROPIUM/ALBUTEROL 0.5-3(2.5)MG/3ML NEB HHN SCH ×2 (04:25→08:49)
[2023-05-28] MEDS: MEROPENEM 1,000 MG in SODIUM CHLORIDE 0.9% 100 ML IV SCH ×3 (05:22→21:24)
[2023-05-28] MEDS ORDERED: VANCOMYCIN 1.25GM PMX (XELLIA) 250 ML IV SCH (06:00)
[2023-05-28 06:11] LABS: BASOPHILS % 0.1 % (0.0-2.0); EOSINOPHILS % 0.7 % (0.0-5.0); HEMATOCRIT. 25.5 % (36.0-48.0); HEMOGLOBIN. 7.6 g/dL (12.0-16.0); LYMPHOCYTES % 11.8 % (20.0-50.0); MEAN CORPUSCULAR HEMOGLOBIN 26.1 pg (28.0-32.0); MEAN CORPUSCULAR HGB CONC 29.9 g/dL (31.0-37.0); MEAN CORPUSCULAR VOLUME 87.1 fL (81.0-99.0); MEAN PLATELET VOLUME 9.4 fl (7.4-10.4); MONOCYTES % 5.6 % (2.0-8.0); NEUTROPHILS % 81.8 % (40.0-76.0); PLATELET 345 x1000/uL (130-400); RED BLOOD CELL COUNT 2.93 mill/uL (4.2-5.4); WHITE BLOOD COUNT 21.2 x1000/uL (4.5-11.0)
[2023-05-28 06:39] LABS: DIFFERENTIAL COMMENT 1
[2023-05-28 07:08] LABS: CHLORIDE 145 mEq/L (98-107); POTASSIUM 3.7 mEq/L (3.5-5.1)
[2023-05-28 07:15] LABS: ALANINE AMINOTRANSFERASE 22 IU/L (13-61); ALBUMIN 1.6 g/dL (3.4-5.0); ASPARTATE AMINOTRANSFERASE 52 IU/L (15-37); BILIRUBIN TOTAL 0.7 mg/dL (0.1-1.0); CALCIUM 7.1 mg/dL (8.5-10.1); CARBON DIOXIDE 20 mEq/L (21-32); CREATINE KINASE MB FRACTION 2.3 ng/mL (0.5-3.6); CREATININE 0.6 mg/dL (0.6-1.3); GLUCOSE 121 mg/dL (70-105); PHOSPHORUS 1.8 mg/dL (2.5-4.9); TROPONIN I HIGH SENSITIVITY 49 ng/L (<54); UREA NITROGEN BLOOD 51 mg/dL (7-21)
[2023-05-28 07:56] LABS: SODIUM 171 mEq/L (136-145)
[2023-05-28 08:14] LABS: CREATINE KINASE 1454 IU/L (26-192)
[2023-05-28] MEDS: CYANOCOBALAMIN 1000MCG TABLET PO SCH (08:54)
[2023-05-28] MEDS: DEXTROSE 5% WATER 1,000 ML IV SCH ×2 (10:50→20:12)
[2023-05-28] MEDS ORDERED: POTASSIUM PHOS,M-BASIC-D-BASIC 15 MMOL in DEXT 5% WATER 245 ML IV NR (11:30)
[2023-05-28] MEDS ORDERED: FAMOTIDINE 20MG/2ML VIAL IV SCH ×2 (11:31→21:00)
[2023-05-28] MEDS: SUCRALFATE 1 G/10 ML UDC GT SCH ×3 (11:56→22:45)
[2023-05-28 12:06] LABS: HEMATOCRIT 29.8 % (36.0-48.0); HEMOGLOBIN 8.8 g/dL (12.0-16.0)
[2023-05-28 14:02] LABS: LACTIC ACID 4.2 mmol/L (0.4-2.0)
[2023-05-28] MEDS: SODIUM HYPOCHLORITE 0.125% 473ML SOLUTION TOP SCH ×2 (14:04→17:06)
[2023-05-28] MEDS: IPRATROPIUM/ALBUTEROL 0.5-3(2.5)MG/3ML NEB NEB PRN ×2 (14:14→20:25)
[2023-05-28 18:07] LABS: CHLORIDE 143 mEq/L (98-107); INDEX HEMOLYSI 1 (1-3); INDEX ICTERIC 1 (1-4); INDEX LIPEMIC 1 (1-3)
[2023-05-28 18:13] LABS: CALCIUM 7.2 mg/dL (8.5-10.1); CARBON DIOXIDE 20 mEq/L (21-32); CREATININE 0.6 mg/dL (0.6-1.3); GLUCOSE 101 mg/dL (70-105); UREA NITROGEN BLOOD 40 mg/dL (7-21)
[2023-05-28 18:27] LABS: HEMATOCRIT 24.8 % (36.0-48.0); HEMOGLOBIN 7.6 g/dL (12.0-16.0)
[2023-05-28 18:52] LABS: POTASSIUM 2.7 mEq/L (3.5-5.1)
[2023-05-28 18:53] LABS: SODIUM 168 mEq/L (136-145)
[2023-05-28] MEDS ORDERED: POTASSIUM CHLORIDE 20MEQ TABLET SR PO NR ×2 (19:00→23:00)
[2023-05-28] MEDS ORDERED: POTASSIUM CHLORIDE INJ 40 MEQ in DEXT 5% WATER 250 ML IV NR (21:00)
[2023-05-28] MEDS: FAMOTIDINE 20MG/2ML VIAL IV SCH (21:24)
[2023-05-29] VITALS (12 sets, daily range): BP systolic 88–110; BP diastolic 63–89; PULSE 89–116; RESP 14–24; TEMP 97–97.9
[2023-05-29] MEDS: VANCOMYCIN 1G PREMIX 200 ML IV SCH ×2 (00:02→17:00)
[2023-05-29 01:25] LABS: HEMATOCRIT 25.5 % (36.0-48.0); HEMOGLOBIN 7.8 g/dL (12.0-16.0)
[2023-05-29] MEDS: DEXTROSE 5% WATER 1,000 ML IV SCH ×2 (05:34→16:20)
[2023-05-29] MEDS: SUCRALFATE 1 G/10 ML UDC GT SCH ×4 (05:34→21:27)
[2023-05-29] MEDS: MEROPENEM 1,000 MG in SODIUM CHLORIDE 0.9% 100 ML IV SCH ×3 (05:34→21:27)
[2023-05-29 08:30] LABS: BASOPHILS % 0.1 % (0.0-2.0); EOSINOPHILS % 1.4 % (0.0-5.0); HEMATOCRIT. 25.9 % (36.0-48.0); LYMPHOCYTES % 13.1 % (20.0-50.0); MEAN CORPUSCULAR HEMOGLOBIN 26.7 pg (28.0-32.0); MEAN PLATELET VOLUME 9.3 fl (7.4-10.4); MONOCYTES % 6.5 % (2.0-8.0); NEUTROPHILS % 78.9 % (40.0-76.0); PLATELET 344 x1000/uL (130-400); RED BLOOD CELL COUNT 3.01 mill/uL (4.2-5.4); RED CELL DISTRIBUTION WIDTH 18.4 % (11.6-14.6)
[2023-05-29] MEDS: FAMOTIDINE 20MG/2ML VIAL IV SCH (08:33)
[2023-05-29] MEDS: CYANOCOBALAMIN 1000MCG TABLET PO SCH (08:33)
[2023-05-29] MEDS: SODIUM HYPOCHLORITE 0.125% 473ML SOLUTION TOP SCH ×2 (08:34→16:21)
[2023-05-29 08:36] LABS: DIFFERENTIAL COMMENT 1
[2023-05-29 08:41] LABS: CHLORIDE 142 mEq/L (98-107); INDEX HEMOLYSI 1 (1-3); INDEX LIPEMIC 1 (1-3); POTASSIUM 3.7 mEq/L (3.5-5.1)
[2023-05-29 08:42] LABS: INDEX ICTERIC 1 (1-4)
[2023-05-29 08:51] LABS: ALANINE AMINOTRANSFERASE 17 IU/L (13-61); ALBUMIN 1.6 g/dL (3.4-5.0); ASPARTATE AMINOTRANSFERASE 30 IU/L (15-37); BILIRUBIN TOTAL 0.5 mg/dL (0.1-1.0); CALCIUM 7.2 mg/dL (8.5-10.1); CARBON DIOXIDE 19 mEq/L (21-32); CREATININE 0.6 mg/dL (0.6-1.3); GLUCOSE 118 mg/dL (70-105); PREALBUMIN 10.5 mg/dL (20.0-40.0); PROTEIN TOTAL 5.6 g/dL (6.0-8.3); UREA NITROGEN BLOOD 27 mg/dL (7-21)
[2023-05-29 09:03] LABS: SODIUM 163 mEq/L (136-145)
[2023-05-29] MEDS ORDERED: PANTOPRAZOLE SODIUM 40 MG/VIAL IV SCH (10:30)
[2023-05-29 13:27] LABS: HEMATOCRIT 25.8 % (36.0-48.0)
[2023-05-29] MEDS: PANTOPRAZOLE SODIUM 40 MG/VIAL IV SCH (16:21)
[2023-05-29 21:08] LABS: HEMATOCRIT 26.3 % (36.0-48.0); HEMOGLOBIN 8.1 g/dL (12.0-16.0)
[2023-05-30] VITALS (12 sets, daily range): BP systolic 79–111; BP diastolic 54–84; PULSE 93–104; RESP 15–31; TEMP 97.3–98.9
[2023-05-30] MEDS: DEXTROSE 5% WATER 1,000 ML IV SCH ×3 (02:18→22:57)
[2023-05-30] MEDS: SUCRALFATE 1 G/10 ML UDC GT SCH ×4 (05:06→22:59)
[2023-05-30] MEDS: MEROPENEM 1,000 MG in SODIUM CHLORIDE 0.9% 100 ML IV SCH (05:06)
[2023-05-30 06:18] LABS: BASOPHILS % 0.6 % (0.0-2.0); EOSINOPHILS % 3.1 % (0.0-5.0); HEMATOCRIT. 24.6 % (36.0-48.0); HEMOGLOBIN. 7.6 g/dL (12.0-16.0); MEAN CORPUSCULAR HEMOGLOBIN 26.9 pg (28.0-32.0); MEAN CORPUSCULAR HGB CONC 30.8 g/dL (31.0-37.0); MEAN CORPUSCULAR VOLUME 87.3 fL (81.0-99.0); MEAN PLATELET VOLUME 9.5 fl (7.4-10.4); MONOCYTES % 6.3 % (2.0-8.0); PLATELET 202 x1000/uL (130-400); RED BLOOD CELL COUNT 2.82 mill/uL (4.2-5.4); RED CELL DISTRIBUTION WIDTH 19.8 % (11.6-14.6)
[2023-05-30 06:30] LABS: CHLORIDE 126 mEq/L (98-107); INDEX HEMOLYSI 2 (1-3); INDEX ICTERIC 1 (1-4); INDEX LIPEMIC 1 (1-3); POTASSIUM 3.4 mEq/L (3.5-5.1); SODIUM 151 mEq/L (136-145)
[2023-05-30 06:35] LABS: CALCIUM 6.9 mg/dL (8.5-10.1); CARBON DIOXIDE 18 mEq/L (21-32); CREATININE 0.5 mg/dL (0.6-1.3); GLUCOSE 104 mg/dL (70-105); PHOSPHORUS 2.2 mg/dL (2.5-4.9); UREA NITROGEN BLOOD 13 mg/dL (7-21)
[2023-05-30 06:47] LABS: DIFFERENTIAL COMMENT 1
[2023-05-30] MEDS ORDERED: POTASSIUM CHLORIDE INJ 40 MEQ in DEXT 5% WATER 250 ML IV ONE (07:00)
[2023-05-30] MEDS ORDERED: POTASSIUM PHOS,M-BASIC-D-BASIC 10 MMOL in DEXT 5% WATER 246.6667 ML IV SCH (08:00)
[2023-05-30] MEDS: PANTOPRAZOLE SODIUM 40 MG/VIAL IV SCH ×2 (08:40→16:35)
[2023-05-30] MEDS: CYANOCOBALAMIN 1000MCG TABLET PO SCH (08:40)
[2023-05-30] MEDS: KCL 20MEQ/100ML X 2 FOR TOTAL KCL 40MEQ/200ML IV SCH ×2 (08:41→10:37)
[2023-05-30] MEDS: SODIUM HYPOCHLORITE 0.125% 473ML SOLUTION TOP SCH ×2 (08:48→16:36)
[2023-05-30] MEDS: CEFAZOLIN 1000MG PREMIX 50 ML IV SCH ×3 (10:51→22:16)
[2023-05-31] VITALS (12 sets, daily range): BP systolic 82–113; BP diastolic 8–79; PULSE 89–104; RESP 15–21; TEMP 97.3–98.9
[2023-05-31] MEDS: SUCRALFATE 1 G/10 ML UDC GT SCH ×4 (05:15→23:16)
[2023-05-31] MEDS: CEFAZOLIN 1000MG PREMIX 50 ML IV SCH ×3 (05:17→21:27)
[2023-05-31 06:37] LABS: BASOPHILS % 0.1 % (0.0-2.0); EOSINOPHILS % 1.1 % (0.0-5.0); HEMOGLOBIN. 7.3 g/dL (12.0-16.0); LYMPHOCYTES % 28.1 % (20.0-50.0); MEAN CORPUSCULAR HEMOGLOBIN 27.1 pg (28.0-32.0); MEAN CORPUSCULAR HGB CONC 31.6 g/dL (31.0-37.0); MEAN CORPUSCULAR VOLUME 85.8 fL (81.0-99.0); MEAN PLATELET VOLUME 8.6 fl (7.4-10.4); MONOCYTES % 5.9 % (2.0-8.0); NEUTROPHILS % 64.8 % (40.0-76.0); PLATELET 233 x1000/uL (130-400); RED BLOOD CELL COUNT 2.68 mill/uL (4.2-5.4); RED CELL DISTRIBUTION WIDTH 18.9 % (11.6-14.6)
[2023-05-31 06:54] LABS: DIFFERENTIAL COMMENT 1
[2023-05-31 07:58] LABS: CALCIUM 7.2 mg/dL (8.5-10.1); CARBON DIOXIDE 20 mEq/L (21-32); CHLORIDE 119 mEq/L (98-107); INDEX HEMOLYSI 1 (1-3); INDEX ICTERIC 1 (1-4); INDEX LIPEMIC 1 (1-3); POTASSIUM 3.5 mEq/L (3.5-5.1); SODIUM 146 mEq/L (136-145); UREA NITROGEN BLOOD 9 mg/dL (7-21)
[2023-05-31 08:02] LABS: CREATININE 0.6 mg/dL (0.6-1.3); GLUCOSE 101 mg/dL (70-105); PHOSPHORUS 2.5 mg/dL (2.5-4.9)
[2023-05-31] MEDS: SODIUM HYPOCHLORITE 0.125% 473ML SOLUTION TOP SCH ×2 (08:10→17:11)
[2023-05-31] MEDS: CYANOCOBALAMIN 1000MCG TABLET PO SCH (09:58)
[2023-05-31] MEDS: PANTOPRAZOLE SODIUM 40 MG/VIAL IV SCH ×2 (09:58→17:12)
[2023-05-31] MEDS: DEXTROSE 5% WATER 1,000 ML IV SCH (10:11)
[2023-06-01] VITALS (13 sets, daily range): BP systolic 94–127; BP diastolic 67–98; PULSE 96–122; RESP 14–26; TEMP 97.8–99.6
[2023-06-01] MEDS: SUCRALFATE 1 G/10 ML UDC GT SCH ×3 (05:40→18:29)
[2023-06-01] MEDS: CEFAZOLIN 1000MG PREMIX 50 ML IV SCH ×3 (05:40→21:39)
[2023-06-01 06:01] LABS: EOSINOPHILS % 1.6 % (0.0-5.0); HEMATOCRIT. 24.5 % (36.0-48.0); HEMOGLOBIN. 7.5 g/dL (12.0-16.0); LYMPHOCYTES % 16.9 % (20.0-50.0); MEAN CORPUSCULAR HEMOGLOBIN 26.4 pg (28.0-32.0); MEAN CORPUSCULAR HGB CONC 30.4 g/dL (31.0-37.0); MEAN CORPUSCULAR VOLUME 86.7 fL (81.0-99.0); MEAN PLATELET VOLUME 8.7 fl (7.4-10.4); MONOCYTES % 6.8 % (2.0-8.0); NEUTROPHILS % 74.7 % (40.0-76.0); PLATELET 242 x1000/uL (130-400); RED BLOOD CELL COUNT 2.83 mill/uL (4.2-5.4); RED CELL DISTRIBUTION WIDTH 19.2 % (11.6-14.6); WHITE BLOOD COUNT 11.5 x1000/uL (4.5-11.0)
[2023-06-01 07:00] LABS: CALCIUM 7.4 mg/dL (8.5-10.1); CARBON DIOXIDE 23 mEq/L (21-32); CHLORIDE 118 mEq/L (98-107); INDEX HEMOLYSI 1 (1-3); INDEX ICTERIC 1 (1-4); INDEX LIPEMIC 1 (1-3); SODIUM 147 mEq/L (136-145)
[2023-06-01 07:03] LABS: CREATININE 0.6 mg/dL (0.6-1.3); GLUCOSE 111 mg/dL (70-105); UREA NITROGEN BLOOD 6 mg/dL (7-21)
[2023-06-01 07:20] LABS: DIFFERENTIAL COMMENT 1
[2023-06-01] MEDS ORDERED: POTASSIUM CHLORIDE INJ 40 MEQ in DEXT 5% WATER 250 ML IV ONE (07:45)
[2023-06-01] MEDS ORDERED: POTASSIUM CHLORIDE 20MEQ TABLET SR PO NR (08:13)
[2023-06-01] MEDS: CYANOCOBALAMIN 1000MCG TABLET PO SCH (09:14)
[2023-06-01] MEDS: PANTOPRAZOLE SODIUM 40 MG/VIAL IV SCH ×2 (09:15→18:29)
[2023-06-01] MEDS: KCL 20MEQ/100ML X 2 FOR TOTAL KCL 40MEQ/200ML IV SCH ×2 (09:15→11:29)
[2023-06-01] MEDS: SODIUM HYPOCHLORITE 0.125% 473ML SOLUTION TOP SCH ×2 (09:15→18:31)
[2023-06-01] MEDS ORDERED: METOCLOPRAMIDE 10MG/10 ML UDC PO PRN (11:00)
[2023-06-01] MEDS ORDERED: DIATR MEGLU/DIATRIZOATE SOLN 30ML GT SCH (11:00)
[2023-06-01] MEDS ORDERED: DIATR MEGLU/DIATRIZOATE SOLN 30ML PO NR (13:45)
[2023-06-01] MEDS ORDERED: IOHEXOL-300 100 ML BOTTLE ONE (18:40)
[2023-06-02] VITALS (15 sets, daily range): BP systolic 92–119; BP diastolic 64–84; PULSE 88–126; RESP 15–29; TEMP 97.9–99.2; O2SAT 100
[2023-06-02] MEDS: SUCRALFATE 1 G/10 ML UDC GT SCH ×3 (00:25→12:06)
[2023-06-02] MEDS: CEFAZOLIN 1000MG PREMIX 50 ML IV SCH ×2 (05:15→14:25)
[2023-06-02 05:55] LABS: BASOPHILS % 0.2 % (0.0-2.0); EOSINOPHILS % 0.6 % (0.0-5.0); HEMATOCRIT. 25.5 % (36.0-48.0); HEMOGLOBIN. 7.9 g/dL (12.0-16.0); LYMPHOCYTES % 13.1 % (20.0-50.0); MEAN CORPUSCULAR HEMOGLOBIN 26.9 pg (28.0-32.0); MEAN CORPUSCULAR HGB CONC 31.2 g/dL (31.0-37.0); MEAN CORPUSCULAR VOLUME 86.4 fL (81.0-99.0); MEAN PLATELET VOLUME 8.8 fl (7.4-10.4); MONOCYTES % 7.2 % (2.0-8.0); NEUTROPHILS % 78.9 % (40.0-76.0); PLATELET 276 x1000/uL (130-400); RED BLOOD CELL COUNT 2.95 mill/uL (4.2-5.4); RED CELL DISTRIBUTION WIDTH 20.2 % (11.6-14.6); WHITE BLOOD COUNT 10.6 x1000/uL (4.5-11.0)
[2023-06-02 07:46] LABS: CHLORIDE 115 mEq/L (98-107); INDEX HEMOLYSI 1 (1-3); INDEX ICTERIC 1 (1-4); INDEX LIPEMIC 1 (1-3); POTASSIUM 3.4 mEq/L (3.5-5.1); SODIUM 143 mEq/L (136-145)
[2023-06-02] MEDS ORDERED: POTASSIUM CHLORIDE INJ 40 MEQ in DEXT 5% WATER 250 ML IV ONE (08:00)
[2023-06-02 08:01] LABS: CALCIUM 7.6 mg/dL (8.5-10.1); CARBON DIOXIDE 22 mEq/L (21-32); CREATININE 0.4 mg/dL (0.6-1.3); GLUCOSE 125 mg/dL (70-105); UREA NITROGEN BLOOD 8 mg/dL (7-21)
[2023-06-02] MEDS: PANTOPRAZOLE SODIUM 40 MG/VIAL IV SCH (09:05)
[2023-06-02] MEDS: CYANOCOBALAMIN 1000MCG TABLET PO SCH (09:05)
[2023-06-02] MEDS: SODIUM HYPOCHLORITE 0.125% 473ML SOLUTION TOP SCH (09:05)
[2023-06-02] MEDS: KCL 20MEQ/100ML X 2 FOR TOTAL KCL 40MEQ/200ML IV SCH ×2 (09:15→12:07)
[2023-06-02] MEDS ORDERED: SODIUM CHLORIDE 0.45% 500 ML IV ONE (15:00)
== END 2023-06-02 16:32 | DRG 871 ==
LOC: ER 12:17 → 5EST 20:31
PROVIDERS: ADMIT Internal Medicine; ATTEND Internal Medicine
PROC: 30233R1 Transfusion of Nonautologous Platelets into Peripheral Vein, Percutaneous Approach (ICD-10-PCS; principal; 2023-05-27)
PROC: 30233N1 Transfusion of Nonautologous Red Blood Cells into Peripheral Vein, Percutaneous Approach (ICD-10-PCS; 2023-05-27)
DX: A41.51 Sepsis due to Escherichia coli [E. coli] (principal); G92.8 Other toxic encephalopathy; L89.154 Pressure ulcer of sacral region, stage 4; R65.21 Severe sepsis with septic shock; J96.01 Acute respiratory failure with hypoxia; I21.A1 Myocardial infarction type 2; J18.9 Pneumonia, unspecified organism; E87.0 Hyperosmolality and hypernatremia; E87.20 Acidosis, unspecified; E46 Unspecified protein-calorie malnutrition; N39.0 Urinary tract infection, site not specified; D62 Acute posthemorrhagic anemia; K92.2 Gastrointestinal hemorrhage, unspecified; I69.351 Hemiplegia and hemiparesis following cerebral infarction affecting right dominant side; F03.90 Unspecified dementia, unspecified severity, without behavioral disturbance, psychotic disturbance, mood disturbance, and anxiety; I10 Essential (primary) hypertension; I73.9 Peripheral vascular disease, unspecified; K21.9 Gastro-esophageal reflux disease without esophagitis; D75.839 Thrombocytosis, unspecified; M20.12 Hallux valgus (acquired), left foot; M20.11 Hallux valgus (acquired), right foot; E78.00 Pure hypercholesterolemia, unspecified; R13.10 Dysphagia, unspecified; I27.20 Pulmonary hypertension, unspecified; B96.20 Unspecified Escherichia coli [E. coli] as the cause of diseases classified elsewhere; E87.6 Hypokalemia; L97.511 Non-pressure chronic ulcer of other part of right foot limited to breakdown of skin; Z79.899 Other long term (current) drug therapy; Z74.01 Bed confinement status; Z87.19 Personal history of other diseases of the digestive system; Z93.1 Gastrostomy status; Z79.01 Long term (current) use of anticoagulants; Z86.718 Personal history of other venous thrombosis and embolism; Z86.711 Personal history of pulmonary embolism; Z68.26 Body mass index [BMI] 26.0-26.9, adult; Z20.822 Contact with and (suspected) exposure to COVID-19
CPT/HCPCS: 36415; 71045; 74177; 80048; 80053; 80202; 81003; 82270; 82378; 82550; 82553; 82607; 82728; 82746; 82941; 82962; 83036; 83540; 83550; 83605; 83735; 83880; 83930; 84100; 84134; 84145; 84439; 84443; 84484; 85014; 85018; 85025; 85044; 86850; 86900; 86920; 86927; 87077; 87186; 87426; 87804; 93005; 93306; 93970; 94640; 99285; C9113; C9803; J0690; J2185; J2405; J2543; J3370; J3420; J3480; J3490; J7030; J7050; J7060; J7070; P9016; P9017; Q9963; Q9967

== ENCOUNTER 2023-11-15 14:34 | Inpatient (IN) | payer MEDICARE, MEDICAID ==
[~2023-11-15] VITALS: Ht 157.5 cm; Wt 65.8 kg
[~2023-11-15 14:34] MED LIST changes: -ACET-2708 MT; +ATOR40TA70 PO; +CLOP-31 GT; -CLOP-31 MT; -DILT60TA41 MT; +LANS30CA55 GT; -LIP40 MT; -MEGE400O5 PO; +MEGE400O6 PO; +MIDO5TAB4 PO; -NITR-87 MT; +POTA-204 PO; +SULF1TAB48 MT
[2023-11-15 14:43] VITALS: O2SAT 100
[2023-11-15] MEDS: SODIUM CHLORIDE 0.9% 1000ML BAG (SEPSIS BOLUS) IV ONE (15:06)
[2023-11-15] MEDS: ACETAMINOPHEN 1000MG/100ML 100 ML IV ONE (15:17)
[2023-11-15 15:42] LABS: HEMATOCRIT. 34.4 % (36.0-48.0); HEMOGLOBIN. 10.6 g/dL (12.0-16.0); MEAN CORPUSCULAR HEMOGLOBIN 26.4 pg (28.0-32.0); MEAN CORPUSCULAR HGB CONC 30.9 g/dL (31.0-37.0); MEAN CORPUSCULAR VOLUME 85.4 fL (81.0-99.0); MEAN PLATELET VOLUME 7.4 fl (7.4-10.4); PLATELET 355 x1000/uL (130-400); RED BLOOD CELL COUNT 4.03 mill/uL (4.2-5.4); RED CELL DISTRIBUTION WIDTH 21.9 % (11.6-14.6); WHITE BLOOD COUNT 13.3 x1000/uL (4.5-11.0)
[2023-11-15] MEDS: PIPERACILLIN/TAZO 3.375G/50ML 50 ML IV ONE (15:42)
[2023-11-15 15:43] LABS: DIFFERENTIAL COMMENT 1
[2023-11-15 16:01] LABS: INR 1.1; PROTHROMBIN TIME 12.4 sec (9.6-11.0)
[2023-11-15 16:12] LABS: ALANINE AMINOTRANSFERASE 15 IU/L (10-49); ALBUMIN 3.6 g/dL (3.2-4.8); ASPARTATE AMINOTRANSFERASE 35 IU/L (<34); BILIRUBIN TOTAL 0.9 mg/dL (0.1-1.0); CALCIUM 8.8 mg/dL (8.7-10.4); CARBON DIOXIDE 19 mEq/L (21-32); CHLORIDE 107 mEq/L (98-107); CREATININE 1.2 mg/dL (0.6-1.0); GLUCOSE 124 mg/dL (70-105); POTASSIUM 4.3 mEq/L (3.5-5.1); PROTEIN TOTAL 7.3 g/dL (6.0-8.3); SODIUM 141 mEq/L (136-145); UREA NITROGEN BLOOD 25 mg/dL (9-23)
[2023-11-15 16:17] LABS: ANISOCYTOSIS 1+; PLATELET ESTIMATE NORMAL
[2023-11-15 16:24] LABS: TROPONIN I HIGH SENSITIVITY 47 ng/L (3.0-34)
[2023-11-15 16:24] LABS: BG BASE EXCESS 0.1 mmol/L (-2.0-2.0); BG CARBOXYHEMOGLOBIN 0.2 % (0.5-1.5); BG DEOXYHEMOGLOBIN 0.5 % (0.0-5.0); BG FRACTION INSPIRED OXYGEN 100; BG HCO3 ACT 22.8 mmol/L (22.0-26.0); BG METHEMOGLOBIN 0.4 % (0.0-1.5); BG OXYGEN SATURATION 99.5 % (92.0-98.5); BG OXYHEMOGLOBIN 98.9 % (94.0-97.0); BG PCO2 30.9 mmHg (35.0-45.0); BG PH 7.486 (7.350-7.450); BG SAMPLE SITE RIGHT RADIAL; BG TOTAL HEMOGLOBIN 11.4 g/dL (12.0-18.0); BG VENT MODE MASK - NRB
[2023-11-15 16:25] LABS: LACTIC ACID 5.3 mmol/L (0.4-2.0)
[2023-11-15 16:35] LABS: CLARITY URINE TURBID (CLEAR); COLOR URINE YELLOW (YELLOW); GLUCOSE URINE NEGATIVE (NEGATIVE); KETONES URINE NEGATIVE (NEGATIVE); LEUKOCYTE ESTERASE URINE 3+ (NEGATIVE); NITRITE URINE NEGATIVE (NEGATIVE); OCCULT BLOOD URINE 2+ (NEGATIVE); PROTEIN URINE 1+ (NEGATIVE); SPECIFIC GRAVITY URINE 1.012 (1.005-1.030); UROBILINOGEN URINE 0.2 E.U./dL (0.2-1.0)
[2023-11-15] MEDS: VANCOMYCIN 1G PREMIX 200 ML IV ONE (16:45)
[2023-11-15 16:57] LABS: BACTERIA URINE 4+; SQUAMOUS EPITHELIAL CELL URINE 1+ /lpf (RARE/1+)
[2023-11-15 16:58] LABS: WBC URINE 25-50 /hpf (0-2)
[2023-11-15] MEDS ORDERED: IPRATROPIUM/ALBUTEROL 0.5-3(2.5)MG/3ML NEB HHN PRN (17:45)
[2023-11-15] MEDS ORDERED: GUAIFENESIN 200MG/10ML SUGAR FREE UDC PO PRN (17:45)
[2023-11-15] MEDS ORDERED: MAGNESIUM/ALUMINUM HYDROXIDE/SIMETHICONE 30ML UDC PO PRN (17:45)
[2023-11-15] MEDS ORDERED: ONDANSETRON HCL 4MG/2ML INJ IV PRN (17:45)
[2023-11-15] MEDS ORDERED: CLONIDINE 0.1MG TABLET PO PRN (17:45)
[2023-11-15] MEDS ORDERED: DOCUSATE SODIUM 100MG CAPSULE PO PRN (17:45)
[2023-11-15] MEDS ORDERED: DEXTROSE 50% WATER 50ML SYRINGE IV PRN (18:15)
[2023-11-15] MEDS: BLOOD SUGAR DIAGNOSTIC STRIP TEST SCH (19:37)
[2023-11-15] MEDS: DEXT 5%/0.9% NACL 1,000 ML IV SCH (19:42)
[2023-11-15] MEDS: MIDODRINE HCL 5MG TABLET GT SCH (20:50)
[2023-11-15] MEDS: FAMOTIDINE 20MG TABLET GT SCH (20:51)
[2023-11-15] MEDS: PIPERACILLIN/TAZO 3.375G/50ML 50 ML IV SCH (23:24)
[2023-11-15 23:32] LABS: CREATINE KINASE 237 IU/L (34-145)
[2023-11-16 00:10] LABS: TROPONIN I HIGH SENSITIVITY 41 ng/L (3.0-34)
[2023-11-16 02:20] VITALS: BP 107/56; PULSE 116; RESP 18; TEMP 98.7
[2023-11-16] MEDS: VANCOMYCIN 500MG PREMIX 100 ML IV SCH (04:11)
[2023-11-16] MEDS: APIXABAN 5 MG TABLET PO SCH (05:45)
[2023-11-16 08:00] VITALS: BP 100/59; PULSE 109; RESP 16; TEMP 97.7
[2023-11-16 08:20] LABS: ALANINE AMINOTRANSFERASE 15 IU/L (10-49); ALBUMIN 3.3 g/dL (3.2-4.8); ASPARTATE AMINOTRANSFERASE 35 IU/L (<34); BILIRUBIN TOTAL 0.6 mg/dL (0.1-1.0); CALCIUM 8.4 mg/dL (8.7-10.4); CARBON DIOXIDE 21 mEq/L (21-32); CHLORIDE 109 mEq/L (98-107); CREATINE KINASE 290 IU/L (34-145); CREATININE 0.9 mg/dL (0.6-1.0); PROTEIN TOTAL 6.9 g/dL (6.0-8.3); SODIUM 143 mEq/L (136-145); T4 FREE 1.58 ng/dL (0.89-1.76); THYROID STIMULATING HORMONE 1.96 uIU/mL (0.55-4.78); TROPONIN I HIGH SENSITIVITY 27 ng/L (3.0-34); UREA NITROGEN BLOOD 24 mg/dL (9-23)
[2023-11-16 08:26] LABS: GLUCOSE 49 mg/dL (70-105)
[2023-11-16] MEDS: FOLIC ACID 1MG TABLET PO SCH (08:26)
[2023-11-16] MEDS: FERROUS SULFATE 300MG/5ML UDC GT SCH (08:27)
[2023-11-16 10:47] LABS: MEAN CORPUSCULAR HEMOGLOBIN 25.8 pg (28.0-32.0); MEAN CORPUSCULAR HGB CONC 30.6 g/dL (31.0-37.0); MEAN CORPUSCULAR VOLUME 84.3 fL (81.0-99.0); MEAN PLATELET VOLUME 7.5 fl (7.4-10.4); PLATELET 290 x1000/uL (130-400); RED BLOOD CELL COUNT 3.09 mill/uL (4.2-5.4); RED CELL DISTRIBUTION WIDTH 21.8 % (11.6-14.6); WHITE BLOOD COUNT 28.6 x1000/uL (4.5-11.0)
[2023-11-16 10:57] LABS: DIFFERENTIAL COMMENT 1
[2023-11-16 12:00] VITALS: BP 93/60; PULSE 97; RESP 18; TEMP 97.9
[2023-11-16 13:21] LABS: ANISOCYTOSIS 3+; HYPOCHROMASIA 1+; PLATELET ESTIMATE NORMAL
[2023-11-16 16:00] VITALS: BP 105/70; PULSE 91; RESP 16; TEMP 98.1
[2023-11-16] MEDS: GENTAMICIN 80MG PREMIX 100 ML IV NR (17:09)
[2023-11-16 20:00] VITALS: BP 99/77; PULSE 63; RESP 19; TEMP 97.3
[2023-11-17] VITALS: BP 109/62; PULSE 102; RESP 18; TEMP 98.1
[2023-11-17 03:21] LABS: HEMATOCRIT. 28.8 % (36.0-48.0); HEMOGLOBIN. 8.7 g/dL (12.0-16.0); MEAN CORPUSCULAR HEMOGLOBIN 25.7 pg (28.0-32.0); MEAN CORPUSCULAR HGB CONC 30.3 g/dL (31.0-37.0); MEAN CORPUSCULAR VOLUME 84.8 fL (81.0-99.0); MEAN PLATELET VOLUME 7.5 fl (7.4-10.4); PLATELET 283 x1000/uL (130-400); RED CELL DISTRIBUTION WIDTH 21.6 % (11.6-14.6); WHITE BLOOD COUNT 22.2 x1000/uL (4.5-11.0)
[2023-11-17 03:32] LABS: DIFFERENTIAL COMMENT 1
[2023-11-17 03:35] LABS: ALANINE AMINOTRANSFERASE 15 IU/L (10-49); ALBUMIN 3.3 g/dL (3.2-4.8); ASPARTATE AMINOTRANSFERASE 29 IU/L (<34); BILIRUBIN TOTAL 0.6 mg/dL (0.1-1.0); CALCIUM 8.5 mg/dL (8.7-10.4); CARBON DIOXIDE 27 mEq/L (21-32); CHLORIDE 111 mEq/L (98-107); GLUCOSE 91 mg/dL (70-105); POTASSIUM 3.3 mEq/L (3.5-5.1); PROTEIN TOTAL 6.5 g/dL (6.0-8.3); SODIUM 143 mEq/L (136-145); UREA NITROGEN BLOOD 13 mg/dL (9-23)
[2023-11-17 03:41] LABS: CREATININE 0.5 mg/dL (0.6-1.0)
[2023-11-17 04:00] VITALS: BP 92/57; PULSE 100; RESP 18; TEMP 97.6
[2023-11-17 05:33] LABS: PLATELET ESTIMATE NORMAL
[2023-11-17 08:00] VITALS: BP 97/64; PULSE 95; RESP 18; TEMP 98.1
[2023-11-17 12:00] VITALS: BP 105/70; PULSE 73; RESP 16; TEMP 97.5
[2023-11-17] MEDS: KCL 20MEQ/100ML PREMIX 100 ML IV NR (13:22)
[2023-11-17] MEDS: MAGNESIUM 2 G PREMIX 50 ML IV NR ×2 (14:40→21:32)
[2023-11-17 16:00] VITALS: BP 106/67; PULSE 98; RESP 18; TEMP 98
[2023-11-17] MEDS ORDERED: VANCOMYCIN 750MG/150ML IV SCH (17:00)
[2023-11-17] MEDS: MEROPENEM 1G/100ML 100 ML IV SCH (17:15)
[2023-11-17 20:00] VITALS: BP 129/75; PULSE 89; RESP 18; TEMP 98.4
[2023-11-18] VITALS (7 sets, daily range): BP systolic 97–134; BP diastolic 62–72; PULSE 70–110; RESP 18–20; TEMP 97.1–100.8
[2023-11-18 06:55] LABS: BASOPHILS % 0.1 % (0.0-2.0); EOSINOPHILS % 1.1 % (0.0-5.0); HEMATOCRIT. 30.7 % (36.0-48.0); HEMOGLOBIN. 9.6 g/dL (12.0-16.0); LYMPHOCYTES % 9.8 % (20.0-50.0); MEAN CORPUSCULAR HEMOGLOBIN 26.5 pg (28.0-32.0); MEAN CORPUSCULAR HGB CONC 31.4 g/dL (31.0-37.0); MEAN CORPUSCULAR VOLUME 84.2 fL (81.0-99.0); MEAN PLATELET VOLUME 7.9 fl (7.4-10.4); MONOCYTES % 7.3 % (2.0-8.0); NEUTROPHILS % 81.7 % (40.0-76.0); PLATELET 308 x1000/uL (130-400); RED BLOOD CELL COUNT 3.64 mill/uL (4.2-5.4); RED CELL DISTRIBUTION WIDTH 21.4 % (11.6-14.6); WHITE BLOOD COUNT 13.9 x1000/uL (4.5-11.0)
[2023-11-18 08:02] LABS: ALANINE AMINOTRANSFERASE 17 IU/L (10-49); ALBUMIN 3.8 g/dL (3.2-4.8); ASPARTATE AMINOTRANSFERASE 26 IU/L (<34); BILIRUBIN TOTAL 0.5 mg/dL (0.1-1.0); CALCIUM 9.2 mg/dL (8.7-10.4); CARBON DIOXIDE 24 mEq/L (21-32); CHLORIDE 105 mEq/L (98-107); CREATININE 0.8 mg/dL (0.6-1.0); GLUCOSE 112 mg/dL (70-105); POTASSIUM 3.1 mEq/L (3.5-5.1); PROTEIN TOTAL 8.1 g/dL (6.0-8.3); UREA NITROGEN BLOOD 20 mg/dL (9-23)
[2023-11-18 08:04] LABS: SODIUM 132 mEq/L (136-145)
[2023-11-18] MEDS: POTASSIUM CHLORIDE 20MEQ/PACKET GT NR (11:38)
[2023-11-18] MEDS: KCL 20MEQ/100ML PREMIX 100 ML IV NR (12:30)
[2023-11-18] MEDS: ACETAMINOPHEN 650MG/20.3ML UDC GT PRN (16:12)
[2023-11-18] MEDS ORDERED: MEROPENEM 1G/100ML 100 ML IV SCH (18:00)
[2023-11-18] MEDS: CEFAZOLIN 2GM/100ML 100 ML IV SCH (21:45)
[2023-11-19] VITALS: BP 116/62; PULSE 88; RESP 16; TEMP 97.6
[2023-11-19 04:00] VITALS: BP 131/68; PULSE 90; RESP 18; TEMP 98
[2023-11-19 07:17] LABS: BASOPHILS % 0.1 % (0.0-2.0); EOSINOPHILS % 4.2 % (0.0-5.0); HEMATOCRIT. 29.1 % (36.0-48.0); LYMPHOCYTES % 20.5 % (20.0-50.0); MEAN CORPUSCULAR HEMOGLOBIN 26.3 pg (28.0-32.0); MEAN CORPUSCULAR VOLUME 85.1 fL (81.0-99.0); MEAN PLATELET VOLUME 7.7 fl (7.4-10.4); MONOCYTES % 11.7 % (2.0-8.0); NEUTROPHILS % 63.5 % (40.0-76.0); PLATELET 302 x1000/uL (130-400); RED BLOOD CELL COUNT 3.42 mill/uL (4.2-5.4); RED CELL DISTRIBUTION WIDTH 21.9 % (11.6-14.6); WHITE BLOOD COUNT 7.3 x1000/uL (4.5-11.0)
[2023-11-19 07:26] LABS: CHLORIDE 113 mEq/L (98-107); POTASSIUM 3.4 mEq/L (3.5-5.1); SODIUM 145 mEq/L (136-145)
[2023-11-19 07:27] LABS: CALCIUM 9.1 mg/dL (8.7-10.4); CARBON DIOXIDE 25 mEq/L (21-32)
[2023-11-19 07:32] LABS: GLUCOSE 108 mg/dL (70-105); UREA NITROGEN BLOOD 17 mg/dL (9-23)
[2023-11-19 07:34] LABS: CREATININE 0.5 mg/dL (0.6-1.0)
[2023-11-19 08:00] VITALS: BP 136/86; PULSE 113; RESP 20; TEMP 98.1
[2023-11-19 12:00] VITALS: BP 145/91; PULSE 116; RESP 18; TEMP 99.1
[2023-11-19] MEDS: KCL 20MEQ/100ML PREMIX 100 ML IV NR (15:45)
[2023-11-19 16:00] VITALS: BP 140/84; PULSE 103; PULSE 117; RESP 19; TEMP 97.7
[2023-11-19 20:00] VITALS: BP 136/85; PULSE 126; RESP 18; TEMP 99.9
[2023-11-20] VITALS: BP 122/53; PULSE 116; RESP 18; TEMP 99
[2023-11-20 04:00] VITALS: BP 106/72; PULSE 121; RESP 18; TEMP 98.9
[2023-11-20 08:00] VITALS: BP 120/74; PULSE 115; RESP 20; TEMP 100.8
[2023-11-20 12:00] VITALS: BP 117/79; PULSE 103; RESP 20; TEMP 98.5
[2023-11-20 16:00] VITALS: BP 119/79; PULSE 104; RESP 20; TEMP 98.4
[2023-11-20 20:00] VITALS: BP 122/79; PULSE 103; RESP 18; TEMP 98.8
[2023-11-21] VITALS: BP 112/73; PULSE 113; RESP 18; TEMP 98.2
[2023-11-21 04:00] VITALS: PULSE 112; RESP 18; TEMP 98.6
[2023-11-21 06:39] LABS: BASOPHILS % 0.2 % (0.0-2.0); EOSINOPHILS % 3.4 % (0.0-5.0); HEMATOCRIT. 25.9 % (36.0-48.0); HEMOGLOBIN. 8.6 g/dL (12.0-16.0); LYMPHOCYTES % 25.4 % (20.0-50.0); MEAN CORPUSCULAR HEMOGLOBIN 27.2 pg (28.0-32.0); MEAN CORPUSCULAR HGB CONC 33.1 g/dL (31.0-37.0); MEAN CORPUSCULAR VOLUME 82.2 fL (81.0-99.0); MEAN PLATELET VOLUME 7.9 fl (7.4-10.4); MONOCYTES % 14.8 % (2.0-8.0); NEUTROPHILS % 56.2 % (40.0-76.0); PLATELET 289 x1000/uL (130-400); RED BLOOD CELL COUNT 3.15 mill/uL (4.2-5.4); RED CELL DISTRIBUTION WIDTH 21.7 % (11.6-14.6); WHITE BLOOD COUNT 8.3 x1000/uL (4.5-11.0)
[2023-11-21 06:47] LABS: CHLORIDE 110 mEq/L (98-107); POTASSIUM 3.3 mEq/L (3.5-5.1); SODIUM 143 mEq/L (136-145)
[2023-11-21 06:49] LABS: CALCIUM 8.8 mg/dL (8.7-10.4); CARBON DIOXIDE 26 mEq/L (21-32)
[2023-11-21 06:54] LABS: CREATININE 0.4 mg/dL (0.6-1.0); GLUCOSE 116 mg/dL (70-105)
[2023-11-21 06:55] LABS: UREA NITROGEN BLOOD 14 mg/dL (9-23)
[2023-11-21 06:56] LABS: ALANINE AMINOTRANSFERASE < 7 IU/L (10-49); ALBUMIN 3.1 g/dL (3.2-4.8); ASPARTATE AMINOTRANSFERASE 17 IU/L (<34)
[2023-11-21 06:57] LABS: BILIRUBIN TOTAL 0.2 mg/dL (0.1-1.0); PROTEIN TOTAL 6.4 g/dL (6.0-8.3)
[2023-11-21 08:00] VITALS: BP 121/75; PULSE 107; RESP 18; TEMP 97.7
[2023-11-21] MEDS: POTASSIUM CHLORIDE 20MEQ TABLET SR PO NR (09:16)
[2023-11-21] MEDS ORDERED: MAGNESIUM 2 G PREMIX 50 ML IV NR (10:00)
[2023-11-21 12:00] VITALS: BP 117/76; PULSE 95; RESP 18; TEMP 97.8
[2023-11-21 16:00] VITALS: BP 112/60; PULSE 60; RESP 18; TEMP 97.9
[2023-11-21 20:00] VITALS: BP 123/78; PULSE 103; RESP 17; TEMP 97.8
[2023-11-22] VITALS: BP 90/59; PULSE 89; RESP 17; TEMP 97.3
[2023-11-22 04:00] VITALS: BP 121/78; PULSE 102; RESP 18; TEMP 97.7
[2023-11-22 08:00] VITALS: BP 148/94; PULSE 120; RESP 22; TEMP 96.6
[2023-11-22 12:00] VITALS: BP 149/94; PULSE 122; RESP 22; TEMP 98.3
[2023-11-22] MEDS ORDERED: MAGNESIUM 2 G PREMIX 50 ML IV ONE (13:30)
[2023-11-22] MEDS ORDERED: POTASSIUM CHLORIDE 20MEQ TABLET SR PO ONE (13:30)
[2023-11-22 16:00] VITALS: BP 138/78; PULSE 118; RESP 22; TEMP 98
[2023-11-22] MEDS ORDERED: CEFT2PIG IV (17:37)
[2023-11-22] MEDS ORDERED: METR375C2 PO (17:37)
== END 2023-11-22 16:30 | DRG 871 ==
LOC: ER 14:34 → EDBEDREQ 15:00 → 8WST 17:38 → EDBEDREQ 17:40
PROVIDERS: ADMIT Internal Medicine; ATTEND Internal Medicine
DX: A41.59 Other Gram-negative sepsis (principal); J96.00 Acute respiratory failure, unspecified whether with hypoxia or hypercapnia; L89.154 Pressure ulcer of sacral region, stage 4; N17.9 Acute kidney failure, unspecified; N13.6 Pyonephrosis; M46.28 Osteomyelitis of vertebra, sacral and sacrococcygeal region; E87.1 Hypo-osmolality and hyponatremia; I82.431 Acute embolism and thrombosis of right popliteal vein; R73.03 Prediabetes; N20.0 Calculus of kidney; L89.510 Pressure ulcer of right ankle, unstageable; E78.00 Pure hypercholesterolemia, unspecified; D64.9 Anemia, unspecified; E83.42 Hypomagnesemia; E87.6 Hypokalemia; F03.90 Unspecified dementia, unspecified severity, without behavioral disturbance, psychotic disturbance, mood disturbance, and anxiety; I10 Essential (primary) hypertension; J45.909 Unspecified asthma, uncomplicated; K21.9 Gastro-esophageal reflux disease without esophagitis; K22.70 Barrett's esophagus without dysplasia; Z74.01 Bed confinement status; R73.9 Hyperglycemia, unspecified; R74.8 Abnormal levels of other serum enzymes; K44.9 Diaphragmatic hernia without obstruction or gangrene; I69.320 Aphasia following cerebral infarction; Z95.828 Presence of other vascular implants and grafts; Z93.1 Gastrostomy status; Z86.711 Personal history of pulmonary embolism; Z79.02 Long term (current) use of antithrombotics/antiplatelets; Z79.01 Long term (current) use of anticoagulants; B96.1 Klebsiella pneumoniae [K. pneumoniae] as the cause of diseases classified elsewhere
CPT/HCPCS: 36415; 36600; 71045; 74176; 80048; 80053; 80202; 81003; 82375; 82550; 82805; 82962; 83036; 83605; 83735; 83880; 84100; 84145; 84439; 84443; 84484; 85025; 85651; 86850; 86900; 87077; 87186; 93005; 99285; J0690; J1580; J2185; J2543; J3370; J3475; J3480; J7030; J0131

== ENCOUNTER 2024-03-15 07:07 | Inpatient (IN) | payer MEDICARE, OTHER ==
[2024-03-15] VITALS (66 sets, daily range): BP systolic 64–117; BP diastolic 36–77; PULSE 122–148; RESP 12–36; TEMP 36.83628–38.28084; O2SAT 88–100
[~2024-03-15] VITALS: Ht 162.6 cm; Wt 70.8 kg
[~2024-03-15 07:07] MED LIST changes: +CEFT2PIG IV; +METR375C2 PO
[2024-03-15] MEDS ORDERED: MIDAZOLAM HCL 100 MG in DEXT 5% WATER 80 ML IV ONE (07:15)
[2024-03-15 07:24] LABS: HEMATOCRIT. 25.8 % (36.0-48.0); HEMOGLOBIN. 7.2 g/dL (12.0-16.0); MEAN CORPUSCULAR HEMOGLOBIN 24.1 pg (28.0-32.0); MEAN CORPUSCULAR HGB CONC 27.9 g/dL (31.0-37.0); MEAN CORPUSCULAR VOLUME 86.2 fL (81.0-99.0); MEAN PLATELET VOLUME 8.1 fl (7.4-10.4); PLATELET 380 x1000/uL (130-400); RED BLOOD CELL COUNT 2.99 mill/uL (4.2-5.4); RED CELL DISTRIBUTION WIDTH 29.6 % (11.6-14.6)
[2024-03-15 07:28] LABS: DIFFERENTIAL COMMENT 1
[2024-03-15 07:33] LABS: CHLORIDE 106 mEq/L (98-107); POTASSIUM 5.1 mEq/L (3.5-5.1); SODIUM 139 mEq/L (136-145)
[2024-03-15 07:34] LABS: CARBON DIOXIDE 14 mEq/L (21-32)
[2024-03-15 07:35] LABS: CALCIUM 9.5 mg/dL (8.7-10.4)
[2024-03-15 07:36] LABS: INR 1.2; PROTHROMBIN TIME 13.6 sec (9.6-11.0)
[2024-03-15] MEDS ORDERED: NOREPINEPHRINE 8MG/250ML PMX 250 ML IV ONE (07:39)
[2024-03-15 07:40] LABS: GLUCOSE 146 mg/dL (70-105); TROPONIN I HIGH SENSITIVITY 19 ng/L (3.0-34); UREA NITROGEN BLOOD 32 mg/dL (9-23)
[2024-03-15] MEDS: NOREPINEPHRINE 8MG/250ML PMX 250 ML IV STA (07:44)
[2024-03-15] MEDS: ETOMIDATE 2MG/ML 10ML VIAL IV ONE (07:44)
[2024-03-15] MEDS: ROCURONIUM BROMIDE 10MG/ML VIAL 5ML IV ONE (07:44)
[2024-03-15] MEDS ORDERED: MIDAZOLAM 100MG/100ML PREMIX IV PRN (07:45)
[2024-03-15 08:06] LABS: CREATININE 2.5 mg/dL (0.6-1.0)
[2024-03-15 08:35] LABS: LACTIC ACID 12.5 mmol/L (0.4-2.0)
[2024-03-15] MEDS ORDERED: IPRATROPIUM/ALBUTEROL 0.5-3(2.5)MG/3ML NEB HHN PRN (08:45)
[2024-03-15] MEDS ORDERED: DOCUSATE SODIUM 100MG CAPSULE PO PRN (08:45)
[2024-03-15] MEDS ORDERED: CLONIDINE 0.1MG TABLET PO PRN (08:45)
[2024-03-15] MEDS ORDERED: SODIUM CHLORIDE 0.9% 1,000 ML IV SCH (08:45)
[2024-03-15] MEDS ORDERED: ONDANSETRON HCL 4MG/2ML INJ IV PRN (08:45)
[2024-03-15] MEDS ORDERED: VANCOMYCIN 1G PREMIX 200 ML IV ONE (08:45)
[2024-03-15] MEDS ORDERED: GUAIFENESIN 200MG/10ML SUGAR FREE UDC PO PRN (08:45)
[2024-03-15] MEDS ORDERED: ACETAMINOPHEN 325MG TABLET PO PRN (08:45)
[2024-03-15] MEDS ORDERED: LORAZEPAM 0.5MG TABLET PO PRN (08:45)
[2024-03-15] MEDS: SODIUM CHLORIDE 0.9% 1000ML BAG (SEPSIS BOLUS) IV ONE (08:50)
[2024-03-15] MEDS: PIPERACILLIN/TAZO 3.375G/50ML 50 ML IV ONE (08:50)
[2024-03-15] MEDS ORDERED: ETOMIDATE 2MG/ML 10ML VIAL IV ONE (09:00)
[2024-03-15] MEDS ORDERED: VANCOMYCIN 1.5GM/250ML IV NR (09:15)
[2024-03-15 09:21] LABS: BG BASE EXCESS -11.8 mmol/L (-2.0-2.0); BG CARBOXYHEMOGLOBIN 0.9 % (0.5-1.5); BG DEOXYHEMOGLOBIN 0.1 % (0.0-5.0); BG FRACTION INSPIRED OXYGEN 100; BG HCO3 ACT 15.9 mmol/L (22.0-26.0); BG METHEMOGLOBIN 0.3 % (0.0-1.5); BG OXYGEN SATURATION 99.9 % (92.0-98.5); BG OXYHEMOGLOBIN 98.7 % (94.0-97.0); BG PCO2 44.7 mmHg (35.0-45.0); BG PH 7.169 (7.350-7.450); BG PO2 215.2 mmHg (75.0-100.0); BG SAMPLE SITE RIGHT RADIAL; BG TOTAL HEMOGLOBIN 7.8 g/dL (12.0-18.0); BG VENT MODE VENT - AC
[2024-03-15] MEDS: ENOXAPARIN 30MG/0.3ML SYR SUBCUT SCH (09:31)
[2024-03-15] MEDS: ACETAMINOPHEN 325MG TABLET PEG ONE (09:32)
[2024-03-15 09:33] LABS: CHLORIDE 108 mEq/L (98-107); POTASSIUM 4.1 mEq/L (3.5-5.1); SODIUM 141 mEq/L (136-145)
[2024-03-15 09:34] LABS: CALCIUM 8.6 mg/dL (8.7-10.4); CARBON DIOXIDE 19 mEq/L (21-32)
[2024-03-15 09:39] LABS: ALANINE AMINOTRANSFERASE 12 IU/L (10-49); ALBUMIN 3.1 g/dL (3.2-4.8); ASPARTATE AMINOTRANSFERASE 33 IU/L (<34); BILIRUBIN DIRECT 0.9 mg/dL (<=3.0); BILIRUBIN TOTAL 1.5 mg/dL (0.1-1.0); CREATININE 2.5 mg/dL (0.6-1.0); GLUCOSE 111 mg/dL (70-105); TROPONIN I HIGH SENSITIVITY 21 ng/L (3.0-34); UREA NITROGEN BLOOD 31 mg/dL (9-23)
[2024-03-15 09:40] LABS: PROTEIN TOTAL 6.3 g/dL (6.0-8.3)
[2024-03-15 09:41] LABS: ALANINE AMINOTRANSFERASE 11 IU/L (10-49); ALBUMIN 3.1 g/dL (3.2-4.8); ASPARTATE AMINOTRANSFERASE 34 IU/L (<34); BILIRUBIN TOTAL 1.5 mg/dL (0.1-1.0); PROTEIN TOTAL 6.4 g/dL (6.0-8.3)
[2024-03-15] MEDS: NOREPINEPHRINE 8MG/250ML PMX 250 ML IV PRN (10:09)
[2024-03-15] MEDS: PHENYLEPHRINE 100 MG in DEXT 5% WATER 240 ML IV PRN (10:31)
[2024-03-15] MEDS: LACTATED RINGERS 1,000 ML IV SCH (10:53)
[2024-03-15] MEDS: LACTATED RINGERS 1,000 ML IV ONE (11:00)
[2024-03-15] MEDS: VANCOMYCIN 1.5GM/250ML IV NR (11:18)
[2024-03-15] MEDS: NOREPINEPHRINE 32 MG in DEXT 5% WATER 218 ML IV PRN (11:19)
[2024-03-15] MEDS ORDERED: EPINEPHRINE 10 MG in SODIUM CHLORIDE 0.9% 240 ML IV PRN (12:15)
[2024-03-15 13:13] LABS: NUCLEATED RED BLOOD CELLS 4 /100 WBC
[2024-03-15 13:14] LABS: ANISOCYTOSIS 3+; HYPOCHROMASIA 1+; PLATELET ESTIMATE NORMAL
[2024-03-15] MEDS: SODIUM BICARBONATE 8.4% 50MEQ/50ML SYR IV NR (13:23)
[2024-03-15] MEDS: MIDAZOLAM 100MG/100ML PMX 100 ML IV PRN (14:08)
[2024-03-15] MEDS: SODIUM BICARBONATE 150 MEQ in DEXTROSE 5% WATER 850 ML IV SCH (14:11)
[2024-03-15] MEDS: PIPERACILLIN/TAZO 3.375G/50ML 50 ML IV SCH (14:12)
[2024-03-15] MEDS: VASOPRESSIN 20 UNIT in SODIUM CHLORIDE 0.9% 99 ML IV PRN (14:40)
[2024-03-15] MEDS ORDERED: MORPHINE SULFATE 2 MG/ML INJ (NOT FOR IM USE) IV NR (16:15)
[2024-03-15] MEDS: AZITHROMYCIN 500MG/250ML 250 ML IV SCH (17:40)
[2024-03-15 19:01] LABS: PHOSPHORUS 3.3 mg/dL (2.5-4.9)
[2024-03-15 19:02] LABS: CREATINE KINASE MB FRACTION 2.5 ng/mL (0.5-3.6)
[2024-03-15] MEDS: IPRATROPIUM/ALBUTEROL 0.5-3(2.5)MG/3ML NEB HHN SCH (19:56)
[2024-03-15] MEDS: SODIUM CHLORIDE 3% FOR INH 15ML NEB INH NR (19:56)
[2024-03-15] MEDS: FAMOTIDINE 20MG TABLET PO SCH (20:17)
[2024-03-15 21:27] LABS: CLARITY URINE TURBID (CLEAR); COLOR URINE DARK YELLOW (YELLOW); GLUCOSE URINE NEGATIVE (NEGATIVE); KETONES URINE NEGATIVE (NEGATIVE); LEUKOCYTE ESTERASE URINE 3+ (NEGATIVE); NITRITE URINE NEGATIVE (NEGATIVE); OCCULT BLOOD URINE 2+ (NEGATIVE); PH URINE 8.5 (4.5-8.0); PROTEIN URINE 2+ (NEGATIVE); SPECIFIC GRAVITY URINE 1.012 (1.005-1.030)
[2024-03-15 21:39] LABS: SODIUM URINE RANDOM 70 mEq/L
[2024-03-15 21:43] LABS: BACTERIA URINE 4+; SQUAMOUS EPITHELIAL CELL URINE 1+ /lpf (RARE/1+)
[2024-03-15 21:44] LABS: WBC URINE TNTC /hpf (0-2)
[2024-03-15 21:51] LABS: OSMOLALITY URINE 310 mOsm/kg (500-850)
[2024-03-15] MEDS: HYDROCORTISONE SOD SUCCINATE 100 MG/2 ML VIAL IV SCH (22:54)
[2024-03-15 23:30] LABS: CREATINE KINASE MB FRACTION 1.5 ng/mL (0.5-3.6)
[2024-03-16] VITALS (113 sets, daily range): BP systolic 83–136; BP diastolic 57–85; PULSE 94–128; RESP 20–29; TEMP 37.11408–38.0586; O2SAT 93–100
[2024-03-16] MEDS: LACTATED RINGERS 1,000 ML IV SCH (00:30)
[2024-03-16] MEDS: ACETYLCYSTEINE 200MG/ML 20% VIAL 4ML INH SCH (02:22)
[2024-03-16 05:53] LABS: POTASSIUM 3.5 mEq/L (3.5-5.1)
[2024-03-16 05:55] LABS: CALCIUM 7.4 mg/dL (8.7-10.4)
[2024-03-16 06:00] LABS: CREATININE 1.4 mg/dL (0.6-1.0)
[2024-03-16 06:04] LABS: HEMATOCRIT. 22.2 % (36.0-48.0); MEAN CORPUSCULAR HEMOGLOBIN 23.9 pg (28.0-32.0); MEAN CORPUSCULAR HGB CONC 28.9 g/dL (31.0-37.0); MEAN CORPUSCULAR VOLUME 82.8 fL (81.0-99.0); MEAN PLATELET VOLUME 8.6 fl (7.4-10.4); PLATELET 255 x1000/uL (130-400); RED BLOOD CELL COUNT 2.68 mill/uL (4.2-5.4); RED CELL DISTRIBUTION WIDTH 28.3 % (11.6-14.6); WHITE BLOOD COUNT 11.6 x1000/uL (4.5-11.0)
[2024-03-16 07:47] LABS: DIFFERENTIAL COMMENT 1
[2024-03-16 07:49] LABS: HEMOGLOBIN. 6.4 g/dL (12.0-16.0)
[2024-03-16] MEDS: KCL 20MEQ/100ML PREMIX 100 ML IV NR (09:10)
[2024-03-16] MEDS: VANCOMYCIN 750MG/150ML (BAXTER) IV SCH (11:15)
[2024-03-16] MEDS: ACETAMINOPHEN 650MG/20.3ML UDC GT PRN (14:01)
[2024-03-16 16:08] LABS: ANISOCYTOSIS 3+; NUCLEATED RED BLOOD CELLS 1 /100 WBC; PLATELET ESTIMATE NORMAL
[2024-03-16 16:09] LABS: HYPOCHROMASIA 2+
[2024-03-16 20:01] LABS: HEMATOCRIT 22.8 % (36.0-48.0); HEMOGLOBIN 7.1 g/dL (12.0-16.0)
[2024-03-16] MEDS: METOCLOPRAMIDE HCL 10MG/2ML VIAL IV SCH (23:30)
[2024-03-17] VITALS (96 sets, daily range): BP systolic 80–124; BP diastolic 58–83; PULSE 90–131; RESP 15–31; TEMP 37.11408–38.00304; O2SAT 91–100
[2024-03-17 05:39] LABS: HEMATOCRIT. 21.6 % (36.0-48.0); MEAN CORPUSCULAR HEMOGLOBIN 25.7 pg (28.0-32.0); MEAN CORPUSCULAR VOLUME 80.3 fL (81.0-99.0); MEAN PLATELET VOLUME 8.7 fl (7.4-10.4); PLATELET 185 x1000/uL (130-400); RED BLOOD CELL COUNT 2.69 mill/uL (4.2-5.4); RED CELL DISTRIBUTION WIDTH 25.2 % (11.6-14.6); WHITE BLOOD COUNT 16.1 x1000/uL (4.5-11.0)
[2024-03-17 05:44] LABS: CHLORIDE 108 mEq/L (98-107); SODIUM 148 mEq/L (136-145)
[2024-03-17 05:45] LABS: CALCIUM 8.2 mg/dL (8.7-10.4); CARBON DIOXIDE 30 mEq/L (21-32)
[2024-03-17 05:48] LABS: POTASSIUM 2.2 mEq/L (3.5-5.1)
[2024-03-17 05:50] LABS: CREATININE 0.7 mg/dL (0.6-1.0); GLUCOSE 101 mg/dL (70-105); UREA NITROGEN BLOOD 24 mg/dL (9-23)
[2024-03-17 05:53] LABS: PREALBUMIN < 5.0 mg/dl (10.0-40.0)
[2024-03-17 06:40] LABS: DIFFERENTIAL COMMENT 1; HEMOGLOBIN. 6.9 g/dL (12.0-16.0)
[2024-03-17] MEDS ORDERED: KCL 20MEQ/100ML PREMIX 100 ML IV SCH (07:45)
[2024-03-17 08:33] LABS: BG BASE EXCESS 6.3 mmol/L (-2.0-2.0); BG CARBOXYHEMOGLOBIN 0.3 % (0.5-1.5); BG DEOXYHEMOGLOBIN 3.5 % (0.0-5.0); BG FRACTION INSPIRED OXYGEN 40; BG HCO3 ACT 28.5 mmol/L (22.0-26.0); BG METHEMOGLOBIN 0.3 % (0.0-1.5); BG OXYGEN SATURATION 96.5 % (92.0-98.5); BG OXYHEMOGLOBIN 95.9 % (94.0-97.0); BG PCO2 30.5 mmHg (35.0-45.0); BG PH 7.588 (7.350-7.450); BG PO2 79.5 mmHg (75.0-100.0); BG SAMPLE SITE RIGHT RADIAL; BG TOTAL HEMOGLOBIN 7.2 g/dL (12.0-18.0); BG VENT MODE VENT - AC
[2024-03-17] MEDS: POTASSIUM CHLORIDE 20MEQ/PACKET PO NR (08:59)
[2024-03-17] MEDS: POTASSIUM CHLORIDE 40 MEQ in DEXT 5% WATER 230 ML IV NR (09:00)
[2024-03-17] MEDS: ZINC SULFATE 220 MG ( 50 ) CAPSULE PO SCH (09:08)
[2024-03-17] MEDS: VANCOMYCIN 1GM/200ML PMX (BAXTER) IV SCH (09:11)
[2024-03-17] MEDS: ASCORBIC ACID 500 MG TABLET PO SCH (09:12)
[2024-03-17 10:31] LABS: PHOSPHORUS 1.5 mg/dL (2.5-4.9)
[2024-03-17] MEDS: POTASSIUM CHLORIDE 40 MEQ in DEXTROSE 5% WATER 1,000 ML IV SCH (12:31)
[2024-03-17] MEDS ORDERED: CEFEPIME 2GM/100ML 100 ML IV SCH (13:45)
[2024-03-17] MEDS: CEFEPIME 2GM/100ML 100 ML IV SCH (15:19)
[2024-03-17 15:34] LABS: HEMATOCRIT. 24.7 % (36.0-48.0); HEMOGLOBIN. 7.6 g/dL (12.0-16.0); MEAN CORPUSCULAR HEMOGLOBIN 24.5 pg (28.0-32.0); MEAN CORPUSCULAR HGB CONC 30.8 g/dL (31.0-37.0); MEAN CORPUSCULAR VOLUME 79.5 fL (81.0-99.0); MEAN PLATELET VOLUME 8.4 fl (7.4-10.4); PLATELET 149 x1000/uL (130-400); RED BLOOD CELL COUNT 3.11 mill/uL (4.2-5.4); RED CELL DISTRIBUTION WIDTH 24.2 % (11.6-14.6); WHITE BLOOD COUNT 18.4 x1000/uL (4.5-11.0)
[2024-03-17 15:35] LABS: DIFFERENTIAL COMMENT 1
[2024-03-17 15:55] LABS: POTASSIUM 3.2 mEq/L (3.5-5.1)
[2024-03-17] MEDS: ACETAMINOPHEN 650MG/20.3ML UDC PO PRN (16:56)
[2024-03-17 17:17] LABS: ANISOCYTOSIS 4+; PLATELET ESTIMATE NORMAL; TARGET CELLS 1+
[2024-03-17] MEDS: FENTANYL CITRATE/PF 50MCG/ML 2ML VIAL IV NR (18:45)
[2024-03-17] MEDS: MEROPENEM 1G/100ML 100 ML IV SCH (21:00)
[2024-03-17 23:26] LABS: IRON 21 ug/dL (50-170)
[2024-03-17 23:33] LABS: FOLIC ACID (FOLATE) SERUM 6.62 ng/mL (>5.38); VITAMIN B12 SERUM 1213 pg/mL (211-911)
[2024-03-17 23:47] LABS: HYPOCHROMASIA 1+; MICROCYTOSIS 1+; PLATELET ESTIMATE NORMAL
[2024-03-17 23:48] LABS: ANISOCYTOSIS 4+; TARGET CELLS FEW
[2024-03-18] VITALS (77 sets, daily range): BP systolic 93–127; BP diastolic 63–85; PULSE 91–113; RESP 12–34; TEMP 36.9474–37.503; O2SAT 6–98
[2024-03-18 00:36] LABS: TOTAL IRON BINDING CAPACITY > 670 ug/dl (250-425)
[2024-03-18 05:40] LABS: HEMATOCRIT. 22.3 % (36.0-48.0); HEMOGLOBIN. 7.1 g/dL (12.0-16.0); MEAN CORPUSCULAR HEMOGLOBIN 25.3 pg (28.0-32.0); MEAN CORPUSCULAR VOLUME 79.2 fL (81.0-99.0); MEAN PLATELET VOLUME 8.8 fl (7.4-10.4); PLATELET 126 x1000/uL (130-400); RED BLOOD CELL COUNT 2.81 mill/uL (4.2-5.4); WHITE BLOOD COUNT 21.6 x1000/uL (4.5-11.0)
[2024-03-18 05:46] LABS: CHLORIDE 110 mEq/L (98-107); SODIUM 147 mEq/L (136-145)
[2024-03-18 05:47] LABS: CARBON DIOXIDE 29 mEq/L (21-32)
[2024-03-18 05:48] LABS: CALCIUM 8.3 mg/dL (8.7-10.4)
[2024-03-18 05:52] LABS: CREATININE 0.6 mg/dL (0.6-1.0); GLUCOSE 195 mg/dL (70-105)
[2024-03-18 05:53] LABS: UREA NITROGEN BLOOD 27 mg/dL (9-23)
[2024-03-18 06:08] LABS: DIFFERENTIAL COMMENT 1
[2024-03-18] MEDS: POTASSIUM CHLORIDE 20MEQ/PACKET PO SCH (08:44)
[2024-03-18] MEDS ORDERED: POTASSIUM CHLORIDE 20MEQ TABLET SR PO SCH (09:00)
[2024-03-18] MEDS ORDERED: FENTANYL CITRATE/PF 50MCG/ML 2ML VIAL IV PRN (11:30)
[2024-03-18 11:31] LABS: ANISOCYTOSIS 2+; HYPOCHROMASIA 1+; PLATELET ESTIMATE SLIGHTLY DECREASED; TARGET CELLS 1+
[2024-03-18] MEDS: KETOROLAC 15MG/ML VIAL IV PRN (11:53)
[2024-03-18] MEDS: FERROUS SULFATE 325MG TABLET PO SCH (11:53)
[2024-03-18] MEDS ORDERED: NALOXONE HCL 0.4MG/ML VIAL IV PRN (14:45)
[2024-03-18] MEDS: BLOOD SUGAR DIAGNOSTIC STRIP TEST SCH (16:21)
[2024-03-18] MEDS: MORPHINE SULFATE 2 MG/ML INJ (NOT FOR IM USE) IV PRN (16:24)
[2024-03-18] MEDS: INSULIN LISPRO 100 UNITS/ML SUBCUT SCH (16:25)
[2024-03-18] MEDS ORDERED: DEXTROSE 50% WATER 50ML SYRINGE IV PRN (17:00)
[2024-03-18] MEDS: ACETAMINOPHEN 650MG/20.3ML UDC PO SCH (17:09)
[2024-03-19] VITALS (98 sets, daily range): BP systolic 104–146; BP diastolic 68–86; PULSE 83–118; RESP 12–35; TEMP 36.83628–37.44744; O2SAT 93–98
[2024-03-19 05:59] LABS: HEMATOCRIT. 22.5 % (36.0-48.0); MEAN CORPUSCULAR VOLUME 80.7 fL (81.0-99.0); MEAN PLATELET VOLUME 8.6 fl (7.4-10.4); PLATELET 121 x1000/uL (130-400); RED BLOOD CELL COUNT 2.79 mill/uL (4.2-5.4); RED CELL DISTRIBUTION WIDTH 24.4 % (11.6-14.6); WHITE BLOOD COUNT 17.3 x1000/uL (4.5-11.0)
[2024-03-19 06:09] LABS: DIFFERENTIAL COMMENT 1
[2024-03-19 06:10] LABS: CHLORIDE 113 mEq/L (98-107); POTASSIUM 3.7 mEq/L (3.5-5.1); SODIUM 148 mEq/L (136-145)
[2024-03-19 06:11] LABS: CALCIUM 8.7 mg/dL (8.7-10.4); CARBON DIOXIDE 31 mEq/L (21-32)
[2024-03-19 06:16] LABS: CREATININE 0.5 mg/dL (0.6-1.0); GLUCOSE 172 mg/dL (70-105); UREA NITROGEN BLOOD 27 mg/dL (9-23)
[2024-03-19 06:18] LABS: PHOSPHORUS 1.2 mg/dL (2.5-4.9)
[2024-03-19 09:01] LABS: ANISOCYTOSIS 2+; PLATELET ESTIMATE NORMAL; TARGET CELLS 1+
[2024-03-19] MEDS: POTASSIUM PHOSPHATE 30 MMOL in SODIUM CHLORIDE 0.9% 490 ML IV NR (11:44)
[2024-03-19 16:56] LABS: BG BASE EXCESS 3.9 mmol/L (-2.0-2.0); BG CARBOXYHEMOGLOBIN 0.6 % (0.5-1.5); BG DEOXYHEMOGLOBIN 2.5 % (0.0-5.0); BG FRACTION INSPIRED OXYGEN 40; BG HCO3 ACT 27.1 mmol/L (22.0-26.0); BG METHEMOGLOBIN 0.3 % (0.0-1.5); BG OXYGEN SATURATION 97.5 % (92.0-98.5); BG OXYHEMOGLOBIN 96.6 % (94.0-97.0); BG PCO2 34.4 mmHg (35.0-45.0); BG PH 7.514 (7.350-7.450); BG PO2 93.5 mmHg (75.0-100.0); BG SAMPLE SITE RIGHT RADIAL; BG TOTAL HEMOGLOBIN 7.7 g/dL (12.0-18.0); BG VENT MODE VENT - CPAP
[2024-03-20] VITALS (60 sets, daily range): BP systolic 107–157; BP diastolic 72–129; PULSE 88–112; RESP 12–30; TEMP 36.83628–37.28076; O2SAT 91–100
[2024-03-20 05:29] LABS: CALCIUM 7.8 mg/dL (8.7-10.4); CARBON DIOXIDE 28 mEq/L (21-32); CHLORIDE 115 mEq/L (98-107); POTASSIUM 3.2 mEq/L (3.5-5.1); SODIUM 150 mEq/L (136-145)
[2024-03-20 05:32] LABS: HEMATOCRIT. 23.9 % (36.0-48.0); HEMOGLOBIN. 7.1 g/dL (12.0-16.0); MEAN CORPUSCULAR HEMOGLOBIN 24.6 pg (28.0-32.0); MEAN CORPUSCULAR HGB CONC 29.6 g/dL (31.0-37.0); MEAN CORPUSCULAR VOLUME 82.9 fL (81.0-99.0); MEAN PLATELET VOLUME 9.3 fl (7.4-10.4); PLATELET 123 x1000/uL (130-400); RED BLOOD CELL COUNT 2.88 mill/uL (4.2-5.4); WHITE BLOOD COUNT 12.5 x1000/uL (4.5-11.0)
[2024-03-20 05:35] LABS: CREATININE 0.5 mg/dL (0.6-1.0); GLUCOSE 135 mg/dL (70-105); UREA NITROGEN BLOOD 21 mg/dL (9-23)
[2024-03-20 05:37] LABS: PHOSPHORUS 2.4 mg/dL (2.5-4.9)
[2024-03-20 06:16] LABS: DIFFERENTIAL COMMENT 1
[2024-03-20] MEDS: POTASSIUM CHLORIDE 20MEQ/PACKET PO NR (08:25)
[2024-03-20] MEDS: POTASSIUM PHOSPHATE 20 MMOL in DEXT 5% WATER 243.3333 ML IV SCH (08:28)
[2024-03-20 11:08] LABS: ANISOCYTOSIS 3+; PLATELET ESTIMATE SLIGHTLY DECREASED
[2024-03-20 11:09] LABS: TARGET CELLS FEW
[2024-03-20] MEDS: LORAZEPAM 2MG/ML INJ IV PRN (13:53)
[2024-03-20] MEDS: PANTOPRAZOLE 40MG DR TABLET PO SCH (16:08)
[2024-03-20] MEDS: ENOXAPARIN 30MG/0.3ML SYR SUBCUT SCH (16:10)
[2024-03-21] VITALS (56 sets, daily range): BP systolic 97–131; BP diastolic 68–104; PULSE 97–112; RESP 10–37; TEMP 36.55848–37.44744; O2SAT 87–100
[2024-03-21 04:46] LABS: CALCIUM 7.6 mg/dL (8.7-10.4); CARBON DIOXIDE 31 mEq/L (21-32); CHLORIDE 116 mEq/L (98-107); SODIUM 154 mEq/L (136-145)
[2024-03-21 04:52] LABS: CREATININE 0.4 mg/dL (0.6-1.0); GLUCOSE 119 mg/dL (70-105); UREA NITROGEN BLOOD 21 mg/dL (9-23)
[2024-03-21 04:54] LABS: PHOSPHORUS 2.4 mg/dL (2.5-4.9)
[2024-03-21 04:56] LABS: HEMATOCRIT. 22.6 % (36.0-48.0); MEAN CORPUSCULAR HGB CONC 30.9 g/dL (31.0-37.0); MEAN CORPUSCULAR VOLUME 80.9 fL (81.0-99.0); MEAN PLATELET VOLUME 8.7 fl (7.4-10.4); PLATELET 171 x1000/uL (130-400); RED BLOOD CELL COUNT 2.79 mill/uL (4.2-5.4); RED CELL DISTRIBUTION WIDTH 25.5 % (11.6-14.6); WHITE BLOOD COUNT 12.3 x1000/uL (4.5-11.0)
[2024-03-21 04:57] LABS: POTASSIUM 2.8 mEq/L (3.5-5.1)
[2024-03-21] MEDS: POTASSIUM CHLORIDE 20MEQ TABLET SR PO NR (05:31)
[2024-03-21 07:16] LABS: DIFFERENTIAL COMMENT 1
[2024-03-21] MEDS ORDERED: POTASSIUM PHOSPHATE IV ONE (08:30)
[2024-03-21] MEDS ORDERED: DEXT 5% IV ONE (08:30)
[2024-03-21] MEDS ORDERED: WATER IV ONE (08:30)
[2024-03-21] MEDS: MAGNESIUM 2 G PREMIX 50 ML IV NR (09:32)
[2024-03-21] MEDS ORDERED: DEXT 5% WATER + KCL 40MEQ/L 1,000 ML IV SCH (10:00)
[2024-03-21 10:32] LABS: BG BASE EXCESS 5.1 mmol/L (-2.0-2.0); BG CARBOXYHEMOGLOBIN 0.7 % (0.5-1.5); BG DEOXYHEMOGLOBIN 2.3 % (0.0-5.0); BG FRACTION INSPIRED OXYGEN 40; BG HCO3 ACT 28.1 mmol/L (22.0-26.0); BG METHEMOGLOBIN 0.3 % (0.0-1.5); BG OXYGEN SATURATION 97.7 % (92.0-98.5); BG OXYHEMOGLOBIN 96.7 % (94.0-97.0); BG PCO2 34.7 mmHg (35.0-45.0); BG PH 7.526 (7.350-7.450); BG PO2 96.3 mmHg (75.0-100.0); BG SAMPLE SITE RIGHT RADIAL; BG TOTAL HEMOGLOBIN 8.9 g/dL (12.0-18.0); BG VENT MODE VENT - CPAP
[2024-03-21] MEDS: WATER IV SCH (10:48)
[2024-03-21] MEDS: POTASSIUM PHOSPHATE IV SCH (10:48)
[2024-03-21] MEDS: DEXT 5% IV SCH (10:48)
[2024-03-21] MEDS: POTASSIUM CHLORIDE 40 MEQ in DEXTROSE 5% WATER 1,000 ML IV SCH (12:26)
[2024-03-21 16:26] LABS: ANISOCYTOSIS 2+; PLATELET ESTIMATE NORMAL
[2024-03-22] VITALS (71 sets, daily range): BP systolic 75–152; BP diastolic 53–76; PULSE 77–122; RESP 0–32; TEMP 36.78072–37.7808; O2SAT 96–100
[2024-03-22 05:04] LABS: BASOPHILS % 0.1 % (0.0-2.0); CARBON DIOXIDE 29 mEq/L (21-32); CHLORIDE 113 mEq/L (98-107); EOSINOPHILS % 1.6 % (0.0-5.0); HEMATOCRIT. 24.8 % (36.0-48.0); HEMOGLOBIN. 7.5 g/dL (12.0-16.0); LYMPHOCYTES % 15.9 % (20.0-50.0); MEAN CORPUSCULAR HEMOGLOBIN 25.1 pg (28.0-32.0); MEAN CORPUSCULAR HGB CONC 30.3 g/dL (31.0-37.0); MEAN CORPUSCULAR VOLUME 82.8 fL (81.0-99.0); MEAN PLATELET VOLUME 8.9 fl (7.4-10.4); NEUTROPHILS % 75.4 % (40.0-76.0); PLATELET 167 x1000/uL (130-400); POTASSIUM 3.7 mEq/L (3.5-5.1); RED BLOOD CELL COUNT 2.99 mill/uL (4.2-5.4); RED CELL DISTRIBUTION WIDTH 25.4 % (11.6-14.6); SODIUM 147 mEq/L (136-145); WHITE BLOOD COUNT 12.7 x1000/uL (4.5-11.0)
[2024-03-22 05:05] LABS: CALCIUM 7.4 mg/dL (8.7-10.4)
[2024-03-22 05:10] LABS: CREATININE 0.3 mg/dL (0.6-1.0); GLUCOSE 126 mg/dL (70-105); UREA NITROGEN BLOOD 13 mg/dL (9-23)
[2024-03-22 05:12] LABS: PHOSPHORUS 2.6 mg/dL (2.5-4.9)
[2024-03-22 05:30] LABS: DIFFERENTIAL COMMENT 1
[2024-03-22 08:14] LABS: BG BASE EXCESS 4.7 mmol/L (-2.0-2.0); BG CARBOXYHEMOGLOBIN 1.3 % (0.5-1.5); BG DEOXYHEMOGLOBIN 1.3 % (0.0-5.0); BG FRACTION INSPIRED OXYGEN 40; BG HCO3 ACT 28.1 mmol/L (22.0-26.0); BG METHEMOGLOBIN 0.3 % (0.0-1.5); BG OXYGEN SATURATION 98.7 % (92.0-98.5); BG OXYHEMOGLOBIN 97.1 % (94.0-97.0); BG PCO2 36.8 mmHg (35.0-45.0); BG PO2 114.4 mmHg (75.0-100.0); BG SAMPLE SITE RIGHT RADIAL; BG TOTAL HEMOGLOBIN 9.3 g/dL (12.0-18.0); BG VENT MODE VENT - CPAP
[2024-03-22] MEDS ORDERED: SODIUM CHLORIDE 3% FOR INH 15ML NEB INH NR (14:00)
[2024-03-22] MEDS ORDERED: ACETAMINOPHEN 650MG/20.3ML UDC PO PRN (16:00)
[2024-03-22] MEDS: NOREPINEPHRINE 8MG/250ML PMX 250 ML IV PRN (18:06)
[2024-03-22] MEDS: ACETYLCYSTEINE 200MG/ML 20% VIAL 4ML INH SCH (22:35)
[2024-03-22] MEDS: IPRATROPIUM/ALBUTEROL 0.5-3(2.5)MG/3ML NEB HHN PRN (22:36)
[2024-03-22] MEDS: SODIUM CHLORIDE 3% FOR INH 4ML NEB INH NR (22:37)
[2024-03-23] VITALS (109 sets, daily range): BP systolic 79–137; BP diastolic 55–77; PULSE 73–121; RESP 0–28; TEMP 36.89184–37.55856; O2SAT 69–100
[2024-03-23 05:53] LABS: BASOPHILS % 0.3 % (0.0-2.0); EOSINOPHILS % 1.2 % (0.0-5.0); HEMATOCRIT. 24.5 % (36.0-48.0); HEMOGLOBIN. 7.5 g/dL (12.0-16.0); LYMPHOCYTES % 11.1 % (20.0-50.0); MEAN CORPUSCULAR HEMOGLOBIN 25.6 pg (28.0-32.0); MEAN CORPUSCULAR HGB CONC 30.5 g/dL (31.0-37.0); MEAN CORPUSCULAR VOLUME 83.8 fL (81.0-99.0); MEAN PLATELET VOLUME 8.7 fl (7.4-10.4); MONOCYTES % 4.4 % (2.0-8.0); PLATELET 223 x1000/uL (130-400); RED BLOOD CELL COUNT 2.92 mill/uL (4.2-5.4); RED CELL DISTRIBUTION WIDTH 26.5 % (11.6-14.6); WHITE BLOOD COUNT 17.8 x1000/uL (4.5-11.0)
[2024-03-23 06:12] LABS: DIFFERENTIAL COMMENT 1
[2024-03-23 09:04] LABS: ERYTHROCYTE SEDIMENTATION RATE 39 mm/hr (0-30)
[2024-03-23 09:54] LABS: BASOPHILS % 0.1 % (0.0-2.0); HEMATOCRIT. 24.6 % (36.0-48.0); HEMOGLOBIN. 7.2 g/dL (12.0-16.0); LYMPHOCYTES % 10.2 % (20.0-50.0); MEAN CORPUSCULAR HEMOGLOBIN 24.7 pg (28.0-32.0); MEAN CORPUSCULAR HGB CONC 29.2 g/dL (31.0-37.0); MEAN CORPUSCULAR VOLUME 84.5 fL (81.0-99.0); MEAN PLATELET VOLUME 8.9 fl (7.4-10.4); MONOCYTES % 5.3 % (2.0-8.0); NEUTROPHILS % 83.4 % (40.0-76.0); PLATELET 197 x1000/uL (130-400); RED BLOOD CELL COUNT 2.92 mill/uL (4.2-5.4); RED CELL DISTRIBUTION WIDTH 26.5 % (11.6-14.6); WHITE BLOOD COUNT 17.4 x1000/uL (4.5-11.0)
[2024-03-23 10:00] LABS: CARBON DIOXIDE 26 mEq/L (21-32); DIFFERENTIAL COMMENT 1
[2024-03-23 10:01] LABS: CALCIUM 7.3 mg/dL (8.7-10.4)
[2024-03-23 10:03] LABS: CHLORIDE 112 mEq/L (98-107); POTASSIUM 4.1 mEq/L (3.5-5.1); SODIUM 141 mEq/L (136-145)
[2024-03-23 10:05] LABS: CREATININE 0.3 mg/dL (0.6-1.0); GLUCOSE 118 mg/dL (70-105); UREA NITROGEN BLOOD 7 mg/dL (9-23)
[2024-03-23] MEDS: IPRATROPIUM/ALBUTEROL 0.5-3(2.5)MG/3ML NEB HHN PRN (21:12)
[2024-03-24] VITALS (95 sets, daily range): BP systolic 77–101; BP diastolic 56–84; PULSE 99–124; RESP 4–33; TEMP 36.78072–37.72524; O2SAT 94–100
[2024-03-24 05:38] LABS: BASOPHILS % 0.1 % (0.0-2.0); EOSINOPHILS % 0.9 % (0.0-5.0); HEMATOCRIT. 25.1 % (36.0-48.0); HEMOGLOBIN. 7.6 g/dL (12.0-16.0); LYMPHOCYTES % 10.7 % (20.0-50.0); MEAN CORPUSCULAR HEMOGLOBIN 24.8 pg (28.0-32.0); MEAN CORPUSCULAR HGB CONC 30.1 g/dL (31.0-37.0); MEAN CORPUSCULAR VOLUME 82.4 fL (81.0-99.0); MEAN PLATELET VOLUME 8.9 fl (7.4-10.4); NEUTROPHILS % 81.3 % (40.0-76.0); PLATELET 175 x1000/uL (130-400); RED BLOOD CELL COUNT 3.05 mill/uL (4.2-5.4); RED CELL DISTRIBUTION WIDTH 26.6 % (11.6-14.6); WHITE BLOOD COUNT 15.1 x1000/uL (4.5-11.0)
[2024-03-24 05:47] LABS: CARBON DIOXIDE 27 mEq/L (21-32); CHLORIDE 110 mEq/L (98-107); POTASSIUM 4.2 mEq/L (3.5-5.1); SODIUM 141 mEq/L (136-145)
[2024-03-24 05:49] LABS: CALCIUM 7.8 mg/dL (8.7-10.4)
[2024-03-24 05:53] LABS: CREATININE 0.3 mg/dL (0.6-1.0); GLUCOSE 106 mg/dL (70-105); UREA NITROGEN BLOOD 6 mg/dL (9-23)
[2024-03-24 06:26] LABS: DIFFERENTIAL COMMENT 1
[2024-03-24] MEDS: ENOXAPARIN 40MG/0.4ML SYR SUBCUT SCH (16:39)
[2024-03-25] VITALS (61 sets, daily range): BP systolic 83–110; BP diastolic 59–79; PULSE 100–119; RESP 6–26; TEMP 36.89184–38.3364; O2SAT 96–100
[2024-03-25 04:52] LABS: BASOPHILS % 0.3 % (0.0-2.0); EOSINOPHILS % 1.1 % (0.0-5.0); HEMATOCRIT. 22.9 % (36.0-48.0); LYMPHOCYTES % 9.1 % (20.0-50.0); MEAN CORPUSCULAR HEMOGLOBIN 24.9 pg (28.0-32.0); MEAN CORPUSCULAR HGB CONC 30.5 g/dL (31.0-37.0); MEAN CORPUSCULAR VOLUME 81.8 fL (81.0-99.0); MEAN PLATELET VOLUME 8.7 fl (7.4-10.4); MONOCYTES % 7.8 % (2.0-8.0); NEUTROPHILS % 81.7 % (40.0-76.0); PLATELET 257 x1000/uL (130-400); RED CELL DISTRIBUTION WIDTH 26.7 % (11.6-14.6); WHITE BLOOD COUNT 13.8 x1000/uL (4.5-11.0)
[2024-03-25 05:02] LABS: CHLORIDE 110 mEq/L (98-107); POTASSIUM 3.6 mEq/L (3.5-5.1); SODIUM 143 mEq/L (136-145)
[2024-03-25 05:03] LABS: CALCIUM 7.5 mg/dL (8.7-10.4); CARBON DIOXIDE 29 mEq/L (21-32)
[2024-03-25 05:08] LABS: CREATININE 0.3 mg/dL (0.6-1.0); GLUCOSE 107 mg/dL (70-105); UREA NITROGEN BLOOD 6 mg/dL (9-23)
[2024-03-25 05:10] LABS: PHOSPHORUS 2.3 mg/dL (2.5-4.9)
[2024-03-25 05:33] LABS: DIFFERENTIAL COMMENT 1
[2024-03-25] MEDS: FUROSEMIDE 40MG/4ML VIAL IVP NR (08:31)
[2024-03-25] MEDS: MAGNESIUM 2 G PREMIX 50 ML IV SCH (09:06)
[2024-03-25] MEDS: POTASSIUM PHOSPHATE 15 MMOL in DEXT 5% WATER 245 ML IV NR (10:47)
[2024-03-26] VITALS (69 sets, daily range): BP systolic 77–107; BP diastolic 52–90; PULSE 107–127; RESP 11–26; TEMP 36.78072–38.16972; O2SAT 97–100
[2024-03-26 05:31] LABS: BASOPHILS % 0.2 % (0.0-2.0); EOSINOPHILS % 0.7 % (0.0-5.0); HEMATOCRIT. 24.3 % (36.0-48.0); HEMOGLOBIN. 7.5 g/dL (12.0-16.0); MEAN CORPUSCULAR HEMOGLOBIN 25.5 pg (28.0-32.0); MEAN CORPUSCULAR HGB CONC 30.9 g/dL (31.0-37.0); MEAN CORPUSCULAR VOLUME 82.6 fL (81.0-99.0); MEAN PLATELET VOLUME 8.2 fl (7.4-10.4); MONOCYTES % 10.4 % (2.0-8.0); NEUTROPHILS % 74.7 % (40.0-76.0); PLATELET 325 x1000/uL (130-400); RED BLOOD CELL COUNT 2.94 mill/uL (4.2-5.4); RED CELL DISTRIBUTION WIDTH 25.8 % (11.6-14.6); WHITE BLOOD COUNT 11.4 x1000/uL (4.5-11.0)
[2024-03-26 05:36] LABS: CARBON DIOXIDE 30 mEq/L (21-32); CHLORIDE 109 mEq/L (98-107); POTASSIUM 3.5 mEq/L (3.5-5.1); SODIUM 142 mEq/L (136-145)
[2024-03-26 05:42] LABS: CREATININE 0.3 mg/dL (0.6-1.0); GLUCOSE 110 mg/dL (70-105); UREA NITROGEN BLOOD 9 mg/dL (9-23)
[2024-03-26 05:44] LABS: PHOSPHORUS 2.4 mg/dL (2.5-4.9)
[2024-03-26 06:32] LABS: DIFFERENTIAL COMMENT 1
[2024-03-26 06:35] LABS: ADD RBC MORPHOLOGY YES
[2024-03-26] MEDS ORDERED: DOCUSATE SODIUM SUGAR FREE 100MG/10ML UDC GT PRN (10:00)
[2024-03-26 11:38] LABS: ANISOCYTOSIS 4+; HYPOCHROMASIA 1+; PLATELET ESTIMATE NORMAL; TARGET CELLS 1+
[2024-03-26 11:39] LABS: GIANT PLATELETS FEW
[2024-03-26] MEDS: FERROUS SULFATE 300MG/5ML UDC GT SCH (11:59)
[2024-03-26] MEDS: IRON SUCROSE COMPLEX 100 MG/5 ML ML IV SCH (16:17)
[2024-03-26] MEDS: SODIUM CHLORIDE 3% FOR INH 4ML NEB INH SCH (17:15)
[2024-03-27] VITALS (79 sets, daily range): BP systolic 82–105; BP diastolic 54–75; PULSE 11–119; RESP 8–28; TEMP 36.61404–37.503; O2SAT 96–100
[2024-03-27 05:39] LABS: BASOPHILS % 0.2 % (0.0-2.0); EOSINOPHILS % 0.6 % (0.0-5.0); HEMATOCRIT. 21.9 % (36.0-48.0); LYMPHOCYTES % 12.4 % (20.0-50.0); MEAN CORPUSCULAR HEMOGLOBIN 25.1 pg (28.0-32.0); MEAN CORPUSCULAR HGB CONC 30.3 g/dL (31.0-37.0); MEAN CORPUSCULAR VOLUME 82.8 fL (81.0-99.0); MEAN PLATELET VOLUME 8.6 fl (7.4-10.4); MONOCYTES % 13.6 % (2.0-8.0); NEUTROPHILS % 73.2 % (40.0-76.0); PLATELET 404 x1000/uL (130-400); RED BLOOD CELL COUNT 2.65 mill/uL (4.2-5.4); RED CELL DISTRIBUTION WIDTH 26.1 % (11.6-14.6); WHITE BLOOD COUNT 10.9 x1000/uL (4.5-11.0)
[2024-03-27] MEDS: LANSOPRAZOLE 30MG DR CAPSULE GT SCH (05:40)
[2024-03-27 05:43] LABS: CHLORIDE 109 mEq/L (98-107); POTASSIUM 3.5 mEq/L (3.5-5.1); SODIUM 143 mEq/L (136-145)
[2024-03-27 05:44] LABS: CARBON DIOXIDE 31 mEq/L (21-32)
[2024-03-27 05:49] LABS: CREATININE 0.3 mg/dL (0.6-1.0); GLUCOSE 111 mg/dL (70-105)
[2024-03-27 05:50] LABS: UREA NITROGEN BLOOD 10 mg/dL (9-23)
[2024-03-27 05:52] LABS: PHOSPHORUS 2.2 mg/dL (2.5-4.9)
[2024-03-27 07:13] LABS: DIFFERENTIAL COMMENT 1; HEMOGLOBIN. 6.7 g/dL (12.0-16.0)
[2024-03-27] MEDS: MAGNESIUM 2 G PREMIX 50 ML IV NR (09:05)
[2024-03-27] MEDS: FUROSEMIDE 40MG/4ML VIAL IVP NR (09:05)
[2024-03-27] MEDS: POTASSIUM PHOSPHATE 20 MMOL in DEXT 5% WATER 243.3333 ML IV NR (09:52)
[2024-03-27 16:50] LABS: BG CARBOXYHEMOGLOBIN 0.3 % (0.5-1.5); BG DEOXYHEMOGLOBIN 1.2 % (0.0-5.0); BG FRACTION INSPIRED OXYGEN 40; BG HCO3 ACT 30.8 mmol/L (22.0-26.0); BG METHEMOGLOBIN 0.3 % (0.0-1.5); BG OXYGEN SATURATION 98.8 % (92.0-98.5); BG OXYHEMOGLOBIN 98.2 % (94.0-97.0); BG PCO2 40.5 mmHg (35.0-45.0); BG PH 7.499 (7.350-7.450); BG PO2 129.3 mmHg (75.0-100.0); BG SAMPLE SITE RIGHT RADIAL; BG TOTAL HEMOGLOBIN 10.7 g/dL (12.0-18.0); BG VENT MODE VENT - CPAP/PS
[2024-03-27 18:39] LABS: HEMATOCRIT 31.7 % (36.0-48.0); HEMOGLOBIN 10.2 g/dL (12.0-16.0)
[2024-03-28] VITALS (62 sets, daily range): BP systolic 89–117; BP diastolic 61–83; PULSE 10–117; RESP 15–33; TEMP 36.72516–37.33632; O2SAT 94–100
[2024-03-28 06:06] LABS: BASOPHILS % 0.4 % (0.0-2.0); EOSINOPHILS % 0.6 % (0.0-5.0); HEMATOCRIT. 30.7 % (36.0-48.0); HEMOGLOBIN. 9.8 g/dL (12.0-16.0); LYMPHOCYTES % 10.2 % (20.0-50.0); MEAN CORPUSCULAR HEMOGLOBIN 26.8 pg (28.0-32.0); MEAN CORPUSCULAR VOLUME 83.6 fL (81.0-99.0); MEAN PLATELET VOLUME 8.4 fl (7.4-10.4); MONOCYTES % 13.5 % (2.0-8.0); NEUTROPHILS % 75.3 % (40.0-76.0); PLATELET 428 x1000/uL (130-400); RED BLOOD CELL COUNT 3.67 mill/uL (4.2-5.4); RED CELL DISTRIBUTION WIDTH 22.5 % (11.6-14.6); WHITE BLOOD COUNT 12.8 x1000/uL (4.5-11.0)
[2024-03-28 06:08] LABS: CHLORIDE 109 mEq/L (98-107); POTASSIUM 3.7 mEq/L (3.5-5.1); SODIUM 145 mEq/L (136-145)
[2024-03-28 06:09] LABS: CARBON DIOXIDE 32 mEq/L (21-32)
[2024-03-28 06:10] LABS: CALCIUM 8.4 mg/dL (8.7-10.4)
[2024-03-28 06:14] LABS: GLUCOSE 99 mg/dL (70-105); UREA NITROGEN BLOOD 11 mg/dL (9-23)
[2024-03-28 06:17] LABS: PHOSPHORUS 3.1 mg/dL (2.5-4.9)
[2024-03-28 06:24] LABS: CREATININE 0.4 mg/dL (0.6-1.0)
[2024-03-28 06:40] LABS: DIFFERENTIAL COMMENT 1
[2024-03-28 07:31] LABS: BG BASE EXCESS 3.9 mmol/L (-2.0-3.0); BG CARBOXYHEMOGLOBIN 0.2 % (0.5-1.5); BG DEOXYHEMOGLOBIN 1.8 % (0.0-5.0); BG HCO3 ACT 28.6 mmol/L (21.0-28.0); BG METHEMOGLOBIN 0.3 % (0.5-1.5); BG OXYGEN SATURATION 98.2 % (94.0-98.0); BG OXYHEMOGLOBIN 97.7 % (94.0-98.0); BG PCO2 43.3 mmHg (32.0-45.0); BG PH 7.437 (7.350-7.450); BG PO2 110.9 mmHg (83.0-108.0); BG SAMPLE SITE RIGHT RADIAL; BG TOTAL HEMOGLOBIN 10.3 g/dL (12.0-16.0); BG VENT MODE VENT - CPAP
[2024-03-28] MEDS ORDERED: ROCURONIUM BROMIDE 10MG/ML VIAL 5ML IV ONE (16:25)
[2024-03-28] MEDS ORDERED: PROPOFOL 200MG/20ML VIAL IV ONE (16:26)
[2024-03-29] VITALS (54 sets, daily range): BP systolic 91–118; BP diastolic 66–84; PULSE 107–135; RESP 16–33; TEMP 36.9474–38.66976; O2SAT 88–100
[2024-03-29 05:42] LABS: CARBON DIOXIDE 30 mEq/L (21-32); CHLORIDE 110 mEq/L (98-107); POTASSIUM 3.6 mEq/L (3.5-5.1); SODIUM 146 mEq/L (136-145)
[2024-03-29 05:43] LABS: CALCIUM 8.6 mg/dL (8.7-10.4)
[2024-03-29 05:48] LABS: CREATININE 0.4 mg/dL (0.6-1.0); GLUCOSE 117 mg/dL (70-105); UREA NITROGEN BLOOD 13 mg/dL (9-23)
[2024-03-29 06:09] LABS: HEMATOCRIT 30.5 % (36.0-48.0); HEMOGLOBIN 9.8 g/dL (12.0-16.0); MEAN CORPUSCULAR HEMOGLOBIN 26.7 pg (28.0-32.0); MEAN CORPUSCULAR VOLUME 83.6 fL (81.0-99.0); PLATELET 469 x1000/uL (130-400); RED BLOOD CELL COUNT 3.65 mill/uL (4.2-5.4); WHITE BLOOD COUNT 12.4 x1000/uL (4.5-11.0)
[2024-03-29 08:19] LABS: BG CARBOXYHEMOGLOBIN 0.4 % (0.5-1.5); BG DEOXYHEMOGLOBIN 1.7 % (0.0-5.0); BG FRACTION INSPIRED OXYGEN 40; BG HCO3 ACT 28.5 mmol/L (21.0-28.0); BG METHEMOGLOBIN 0.3 % (0.5-1.5); BG OXYGEN SATURATION 98.3 % (94.0-98.0); BG OXYHEMOGLOBIN 97.6 % (94.0-98.0); BG PH 7.493 (7.350-7.450); BG SAMPLE SITE RIGHT RADIAL; BG TOTAL HEMOGLOBIN 10.5 g/dL (12.0-16.0); BG VENT MODE VENT - SIMV
[2024-03-29] MEDS: SODIUM CHLORIDE 0.45% 1,000 ML IV SCH (12:22)
[2024-03-30] VITALS (23 sets, daily range): BP systolic 100–116; BP diastolic 68–90; PULSE 99–133; RESP 12–28; TEMP 36.28068–39.00312; O2SAT 92–100
[2024-03-30 06:47] LABS: HEMATOCRIT 28.5 % (36.0-48.0); MEAN CORPUSCULAR HEMOGLOBIN 26.9 pg (28.0-32.0); MEAN CORPUSCULAR HGB CONC 31.6 g/dL (31.0-37.0); MEAN CORPUSCULAR VOLUME 85.2 fL (81.0-99.0); PLATELET 394 x1000/uL (130-400); RED BLOOD CELL COUNT 3.35 mill/uL (4.2-5.4); WHITE BLOOD COUNT 10.4 x1000/uL (4.5-11.0)
[2024-03-30 06:59] LABS: CHLORIDE 108 mEq/L (98-107); POTASSIUM 3.6 mEq/L (3.5-5.1); SODIUM 139 mEq/L (136-145)
[2024-03-30 07:00] LABS: CARBON DIOXIDE 27 mEq/L (21-32)
[2024-03-30 07:01] LABS: CALCIUM 8.2 mg/dL (8.7-10.4)
[2024-03-30 07:05] LABS: CREATININE 0.3 mg/dL (0.6-1.0); GLUCOSE 113 mg/dL (70-105); UREA NITROGEN BLOOD 10 mg/dL (9-23)
[2024-03-30 09:28] LABS: BG BASE EXCESS 3.3 mmol/L (-2.0-3.0); BG CARBOXYHEMOGLOBIN 0.9 % (0.5-1.5); BG DEOXYHEMOGLOBIN 13.2 % (0.0-5.0); BG FRACTION INSPIRED OXYGEN 40; BG HCO3 ACT 26.6 mmol/L (21.0-28.0); BG METHEMOGLOBIN 0.3 % (0.5-1.5); BG OXYGEN SATURATION 86.6 % (94.0-98.0); BG OXYHEMOGLOBIN 85.6 % (94.0-98.0); BG PCO2 35.7 mmHg (32.0-45.0); BG PO2 48.3 mmHg (83.0-108.0); BG SAMPLE SITE RIGHT RADIAL; BG TOTAL HEMOGLOBIN 10.8 g/dL (12.0-16.0); BG VENT MODE VENT - SIMV
[2024-03-30 19:06] LABS: BG BASE EXCESS 4.6 mmol/L (-2.0-3.0); BG CARBOXYHEMOGLOBIN 0.2 % (0.5-1.5); BG DEOXYHEMOGLOBIN 12.2 % (0.0-5.0); BG FRACTION INSPIRED OXYGEN 50; BG HCO3 ACT 27.2 mmol/L (21.0-28.0); BG METHEMOGLOBIN 0.3 % (0.5-1.5); BG OXYGEN SATURATION 87.7 % (94.0-98.0); BG OXYHEMOGLOBIN 87.3 % (94.0-98.0); BG PCO2 33.2 mmHg (32.0-45.0); BG PH 7.531 (7.350-7.450); BG PO2 49.3 mmHg (83.0-108.0); BG SAMPLE SITE LEFT RADIAL; BG TOTAL HEMOGLOBIN 10.8 g/dL (12.0-16.0); BG VENT MODE VENT - AC
[2024-03-30] MEDS: METOPROLOL TARTRATE 25MG TABLET PO SCH (21:00)
[2024-03-31] VITALS (23 sets, daily range): BP systolic 86–106; BP diastolic 61–76; PULSE 96–116; RESP 2–22; TEMP 36.22512–37.7808; O2SAT 98–100
[2024-03-31] MEDS ORDERED: CLOP75TA33 PO (07:31)
[2024-03-31] MEDS ORDERED: BACL5TAB PO (07:31)
[2024-03-31] MEDS ORDERED: SUCR1ORA15 PO (07:31)
[2024-03-31] MEDS ORDERED: MIDO10TA PO (07:32)
[2024-03-31] MEDS ORDERED: METOPROLOL TARTRATE 25MG TABLET PO SCH (09:00)
[2024-03-31 09:40] LABS: BG BASE EXCESS 2.9 mmol/L (-2.0-3.0); BG CARBOXYHEMOGLOBIN 0.3 % (0.5-1.5); BG DEOXYHEMOGLOBIN 0.7 % (0.0-5.0); BG FRACTION INSPIRED OXYGEN 60; BG HCO3 ACT 26.3 mmol/L (21.0-28.0); BG METHEMOGLOBIN 0.1 % (0.5-1.5); BG OXYGEN SATURATION 99.3 % (94.0-98.0); BG OXYHEMOGLOBIN 98.9 % (94.0-98.0); BG PH 7.482 (7.350-7.450); BG PO2 161.1 mmHg (83.0-108.0); BG SAMPLE SITE RIGHT RADIAL; BG VENT MODE VENT - AC
[2024-03-31] MEDS: INSULIN LISPRO 100 UNITS/ML SUBCUT SCH (11:52)
[2024-03-31] MEDS: BLOOD SUGAR DIAGNOSTIC STRIP TEST SCH (11:52)
[2024-03-31] MEDS: SODIUM CHLORIDE 0.9% 1,000 ML IV SCH (17:45)
[2024-04-01] VITALS (25 sets, daily range): BP systolic 85–101; BP diastolic 63–74; PULSE 95–119; RESP 19–26; TEMP 37.2252–38.11416; O2SAT 97–100
[2024-04-01 08:21] LABS: CHLORIDE 110 mEq/L (98-107); POTASSIUM 4.1 mEq/L (3.5-5.1); SODIUM 142 mEq/L (136-145)
[2024-04-01 08:22] LABS: CALCIUM 8.1 mg/dL (8.7-10.4); CARBON DIOXIDE 26 mEq/L (21-32)
[2024-04-01 08:27] LABS: CREATININE 0.3 mg/dL (0.6-1.0); GLUCOSE 101 mg/dL (70-105); UREA NITROGEN BLOOD 11 mg/dL (9-23)
[2024-04-01] MEDS ORDERED: SODIUM CHLORIDE 0.45% 1,000 ML IV SCH (09:30)
[2024-04-01 11:02] LABS: BG BASE EXCESS 3.8 mmol/L (-2.0-3.0); BG CARBOXYHEMOGLOBIN 0.2 % (0.5-1.5); BG DEOXYHEMOGLOBIN 1.5 % (0.0-5.0); BG FRACTION INSPIRED OXYGEN 30; BG HCO3 ACT 27.1 mmol/L (21.0-28.0); BG METHEMOGLOBIN 0.3 % (0.5-1.5); BG OXYGEN SATURATION 98.5 % (94.0-98.0); BG PCO2 35.5 mmHg (32.0-45.0); BG PO2 115.2 mmHg (83.0-108.0); BG SAMPLE SITE RIGHT RADIAL; BG TOTAL HEMOGLOBIN 9.8 g/dL (12.0-16.0); BG TOTAL RESPIRATORY RATE 20 b/min; BG VENT MODE VENT - AC
[2024-04-01] MEDS: MAGNESIUM 2 G PREMIX 50 ML IV NR (11:33)
[2024-04-01] MEDS: SODIUM CHLORIDE 0.9% 500 ML IV ONE (11:46)
[2024-04-01] MEDS: LACTATED RINGERS 1,000 ML IV SCH (14:01)
[2024-04-01] MEDS ORDERED: LOPERAMIDE HCL 2MG CAPSULE PO PRN (15:15)
[2024-04-01] MEDS: MORPHINE SULFATE 2 MG/ML INJ (NOT FOR IM USE) IV NR (16:08)
[2024-04-01 16:39] LABS: BASOPHILS % 0.4 % (0.0-2.0); EOSINOPHILS % 1.3 % (0.0-5.0); HEMATOCRIT. 27.9 % (36.0-48.0); HEMOGLOBIN. 8.7 g/dL (12.0-16.0); LYMPHOCYTES % 17.9 % (20.0-50.0); MEAN CORPUSCULAR HEMOGLOBIN 27.2 pg (28.0-32.0); MEAN CORPUSCULAR HGB CONC 31.2 g/dL (31.0-37.0); MEAN PLATELET VOLUME 8.4 fl (7.4-10.4); NEUTROPHILS % 68.4 % (40.0-76.0); PLATELET 359 x1000/uL (130-400); RED BLOOD CELL COUNT 3.21 mill/uL (4.2-5.4); RED CELL DISTRIBUTION WIDTH 24.1 % (11.6-14.6); WHITE BLOOD COUNT 6.7 x1000/uL (4.5-11.0)
[2024-04-01 16:51] LABS: DIFFERENTIAL COMMENT 1
[2024-04-01] MEDS: FAMOTIDINE 20MG TABLET PO SCH (21:25)
[2024-04-02] VITALS (25 sets, daily range): BP systolic 95–103; BP diastolic 62–71; PULSE 96–108; RESP 20–33; TEMP 36.9474–37.39188; O2SAT 98–100
[2024-04-02 08:22] LABS: CALCIUM 8.4 mg/dL (8.7-10.4); CARBON DIOXIDE 28 mEq/L (21-32); CHLORIDE 110 mEq/L (98-107); POTASSIUM 3.6 mEq/L (3.5-5.1); SODIUM 142 mEq/L (136-145)
[2024-04-02 08:23] LABS: HEMATOCRIT 27.5 % (36.0-48.0); HEMOGLOBIN 8.9 g/dL (12.0-16.0); MEAN CORPUSCULAR HEMOGLOBIN 27.8 pg (28.0-32.0); MEAN CORPUSCULAR HGB CONC 32.4 g/dL (31.0-37.0); MEAN CORPUSCULAR VOLUME 85.7 fL (81.0-99.0); PLATELET 341 x1000/uL (130-400); RED BLOOD CELL COUNT 3.21 mill/uL (4.2-5.4); RED CELL DISTRIBUTION WIDTH 24.1 % (11.6-14.6); WHITE BLOOD COUNT 5.9 x1000/uL (4.5-11.0)
[2024-04-02 08:27] LABS: CREATININE 0.3 mg/dL (0.6-1.0)
[2024-04-02 08:28] LABS: GLUCOSE 106 mg/dL (70-105); UREA NITROGEN BLOOD 9 mg/dL (9-23)
[2024-04-02 08:30] LABS: PHOSPHORUS 3.1 mg/dL (2.5-4.9)
[2024-04-02] MEDS ORDERED: LOPERAMIDE HCL 2MG CAPSULE PO PRN (13:45)
[2024-04-03] VITALS (25 sets, daily range): BP systolic 98–111; BP diastolic 70–77; PULSE 98–118; RESP 15–30; TEMP 37.05852–37.66968; O2SAT 94–99
[2024-04-04] VITALS (24 sets, daily range): BP systolic 86–110; BP diastolic 60–78; PULSE 99–118; RESP 20–33; TEMP 36.6696–38.50308; O2SAT 90–100
[2024-04-04 05:43] LABS: CARBON DIOXIDE 28 mEq/L (21-32); CHLORIDE 108 mEq/L (98-107); POTASSIUM 3.6 mEq/L (3.5-5.1); SODIUM 141 mEq/L (136-145)
[2024-04-04 05:44] LABS: CALCIUM 8.5 mg/dL (8.7-10.4)
[2024-04-04 05:49] LABS: GLUCOSE 113 mg/dL (70-105); UREA NITROGEN BLOOD 10 mg/dL (9-23)
[2024-04-04 06:12] LABS: CREATININE 0.4 mg/dL (0.6-1.0)
[2024-04-04 06:26] LABS: BASOPHILS % 0.3 % (0.0-2.0); EOSINOPHILS % 0.6 % (0.0-5.0); HEMATOCRIT. 29.1 % (36.0-48.0); HEMOGLOBIN. 9.3 g/dL (12.0-16.0); LYMPHOCYTES % 24.7 % (20.0-50.0); MEAN CORPUSCULAR HEMOGLOBIN 27.6 pg (28.0-32.0); MEAN CORPUSCULAR HGB CONC 31.9 g/dL (31.0-37.0); MEAN CORPUSCULAR VOLUME 86.3 fL (81.0-99.0); MEAN PLATELET VOLUME 7.6 fl (7.4-10.4); MONOCYTES % 11.2 % (2.0-8.0); NEUTROPHILS % 63.2 % (40.0-76.0); PLATELET 289 x1000/uL (130-400); RED BLOOD CELL COUNT 3.37 mill/uL (4.2-5.4); RED CELL DISTRIBUTION WIDTH 23.5 % (11.6-14.6); WHITE BLOOD COUNT 6.2 x1000/uL (4.5-11.0)
[2024-04-04 07:45] LABS: DIFFERENTIAL COMMENT 1
[2024-04-04 07:46] LABS: ADD RBC MORPHOLOGY NO
[2024-04-05] VITALS (23 sets, daily range): BP systolic 89–106; BP diastolic 61–68; PULSE 100–112; RESP 18–31; TEMP 36.61404–37.72524; O2SAT 95–100
[2024-04-06] VITALS (23 sets, daily range): BP systolic 97–114; BP diastolic 66–86; PULSE 10–116; RESP 16–24; TEMP 36.6696–37.66968; O2SAT 97–100
[2024-04-06 07:35] LABS: CHLORIDE 108 mEq/L (98-107); POTASSIUM 3.7 mEq/L (3.5-5.1); SODIUM 142 mEq/L (136-145)
[2024-04-06 07:36] LABS: CALCIUM 8.2 mg/dL (8.7-10.4); CARBON DIOXIDE 26 mEq/L (21-32)
[2024-04-06 07:37] LABS: BASOPHILS % 0.3 % (0.0-2.0); EOSINOPHILS % 1.9 % (0.0-5.0); HEMATOCRIT. 27.2 % (36.0-48.0); HEMOGLOBIN. 8.6 g/dL (12.0-16.0); LYMPHOCYTES % 21.3 % (20.0-50.0); MEAN CORPUSCULAR HEMOGLOBIN 26.7 pg (28.0-32.0); MEAN CORPUSCULAR HGB CONC 31.6 g/dL (31.0-37.0); MEAN CORPUSCULAR VOLUME 84.5 fL (81.0-99.0); MONOCYTES % 12.2 % (2.0-8.0); NEUTROPHILS % 64.3 % (40.0-76.0); PLATELET 245 x1000/uL (130-400); RED BLOOD CELL COUNT 3.22 mill/uL (4.2-5.4); RED CELL DISTRIBUTION WIDTH 23.9 % (11.6-14.6); WHITE BLOOD COUNT 7.1 x1000/uL (4.5-11.0)
[2024-04-06 07:41] LABS: CREATININE 0.4 mg/dL (0.6-1.0); GLUCOSE 111 mg/dL (70-105); UREA NITROGEN BLOOD 12 mg/dL (9-23)
[2024-04-06 07:51] LABS: DIFFERENTIAL COMMENT 1
[2024-04-06 07:52] LABS: ADD RBC MORPHOLOGY YES
[2024-04-06 11:21] LABS: ANISOCYTOSIS 3+; PLATELET ESTIMATE NORMAL
[2024-04-06 11:22] LABS: TARGET CELLS 1+
[2024-04-07] VITALS (19 sets, daily range): BP systolic 96–112; BP diastolic 67–83; PULSE 100–117; RESP 4–31; TEMP 36.89184–37.05852; O2SAT 93–100
== END 2024-04-07 19:18 | DRG 4 ==
LOC: ER 07:07 → MICUNO 07:50 → EDBEDREQ 07:53 → 5EST 03-29 14:00
PROVIDERS: ADMIT Internal Medicine; ATTEND Internal Medicine
PROC: 5A1955Z Respiratory Ventilation, Greater than 96 Consecutive Hours (ICD-10-PCS; principal; 2024-03-15)
PROC: 0BH17EZ Insertion of Endotracheal Airway into Trachea, Via Natural or Artificial Opening (ICD-10-PCS; 2024-03-15)
PROC: 30233N1 Transfusion of Nonautologous Red Blood Cells into Peripheral Vein, Percutaneous Approach (ICD-10-PCS; 2024-03-16)
PROC: 0B110F4 Bypass Trachea to Cutaneous with Tracheostomy Device, Open Approach (ICD-10-PCS; 2024-03-28)
DX: A41.59 Other Gram-negative sepsis (principal); J96.01 Acute respiratory failure with hypoxia; L89.154 Pressure ulcer of sacral region, stage 4; N17.0 Acute kidney failure with tubular necrosis; R65.21 Severe sepsis with septic shock; J15.0 Pneumonia due to Klebsiella pneumoniae; G92.8 Other toxic encephalopathy; J69.0 Pneumonitis due to inhalation of food and vomit; N39.0 Urinary tract infection, site not specified; E87.20 Acidosis, unspecified; E87.4 Mixed disorder of acid-base balance; E87.0 Hyperosmolality and hypernatremia; L97.319 Non-pressure chronic ulcer of right ankle with unspecified severity; E87.1 Hypo-osmolality and hyponatremia; I13.0 Hypertensive heart and chronic kidney disease with heart failure and stage 1 through stage 4 chronic kidney disease, or unspecified chronic kidney disease; E46 Unspecified protein-calorie malnutrition; M80.852A Other osteoporosis with current pathological fracture, left femur, initial encounter for fracture; E87.5 Hyperkalemia; I50.9 Heart failure, unspecified; L89.500 Pressure ulcer of unspecified ankle, unstageable; K21.9 Gastro-esophageal reflux disease without esophagitis; E11.51 Type 2 diabetes mellitus with diabetic peripheral angiopathy without gangrene; R33.8 Other retention of urine; Z20.822 Contact with and (suspected) exposure to COVID-19; E87.6 Hypokalemia; T83.091A Other mechanical complication of indwelling urethral catheter, initial encounter; D50.9 Iron deficiency anemia, unspecified; Y73.8 Miscellaneous gastroenterology and urology devices associated with adverse incidents, not elsewhere classified; D63.8 Anemia in other chronic diseases classified elsewhere; E78.00 Pure hypercholesterolemia, unspecified; N18.9 Chronic kidney disease, unspecified; R13.10 Dysphagia, unspecified; R50.2 Drug induced fever; Z74.01 Bed confinement status; Z79.01 Long term (current) use of anticoagulants; Z79.02 Long term (current) use of antithrombotics/antiplatelets; Z79.899 Other long term (current) drug therapy; Z86.711 Personal history of pulmonary embolism; Z86.718 Personal history of other venous thrombosis and embolism; Z87.440 Personal history of urinary (tract) infections; Z93.1 Gastrostomy status; Z95.828 Presence of other vascular implants and grafts; Z68.26 Body mass index [BMI] 26.0-26.9, adult
CPT/HCPCS: 36415; 36600; 71045; 73552; 76770; 78580; 80048; 80053; 80076; 80202; 81003; 82040; 82270; 82375; 82550; 82553; 82607; 82746; 82805; 82962; 83036; 83540; 83550; 83605; 83735; 83880; 83935; 84100; 84132; 84134; 84145; 84300; 84484; 85014; 85018; 85025; 85027; 85379; 85651; 86850; 86900; 86920; 87070; 87077; 87186; 87426; 87804; 93005; 93970; 94003; 94640; 99291; A6261; A9503; J0456; J0692; J1650; J1720; J1815; J1885; J1940; J2060; J2185; J2250; J2270; J2543; J2704; J2765; J3010; J3370; J3475; J3480; J3490; J7030; J7040; J7050; J7060; J7070; J7120; J7608; P9016; A5200